=== PATIENT | female | born 1960 | race African-American/Black ===

== ENCOUNTER → 2017-03-14 | Outpatient (CLI) | payer MEDICARE, MEDICAID ==
[~2017-03-14] MED LIST: CARV3.1242 PO; ESOM40CA PO; HYDR100T26 PO; INSU3INS6 SUBCUT; ISOS30TA6 PO; NITR100C PO; PHEN-910 PO
== END | disposition home or self-care (01) ==
LOC: RAD 11:24
PROVIDERS: ATTEND Physician Assistant Medical
DX: M19.071 Primary osteoarthritis, right ankle and foot (principal)
CPT/HCPCS: 73630

== ENCOUNTER 2017-03-20 14:13 | Emergency (ER) | payer MEDICARE, MEDICAID ==
[~2017-03-20] VITALS: Ht 165.1 cm; Wt 85.0 kg
[2017-03-20 15:48] VITALS: BP 135/85
[2017-03-20] MEDS ORDERED: ONDANSETRON HCL 4MG/2ML VIAL IV STA (16:27)
[2017-03-20] MEDS ORDERED: FAMOTIDINE 20MG/2ML VIAL IV ONE (16:30)
[2017-03-20] MEDS ORDERED: KETOROLAC 15MG/ML VIAL IV ONE (16:30)
[2017-03-20 16:45] LABS: BASOPHILS % 1.2 % (0.0-2.0); EOSINOPHILS % 1.7 % (0.0-5.0); HEMATOCRIT. 42.6 % (36.0-48.0); HEMOGLOBIN. 13.6 g/dL (12.0-16.0); LYMPHOCYTES % 9.8 % (20.0-50.0); MEAN CORPUSCULAR HEMOGLOBIN 26.6 pg (28.0-32.0); MEAN CORPUSCULAR VOLUME 83.4 fL (81.0-99.0); MEAN PLATELET VOLUME 9.4 fl (7.4-10.4); MONOCYTES % 10.3 % (2.0-8.0); PLATELET 109 x1000/uL (130-400); RED BLOOD CELL COUNT 5.11 mill/uL (4.2-5.4); RED CELL DISTRIBUTION WIDTH 19.9 % (11.6-14.6)
[2017-03-20 16:51] LABS: CHLORIDE 101 mEq/L (98-107)
[2017-03-20 16:52] LABS: INR 0.9; PROTHROMBIN TIME 9.8 sec (9.4-11.6)
[2017-03-20 17:00] LABS: CARBON DIOXIDE 29 mEq/L (21-32)
[2017-03-20 17:05] LABS: CLARITY URINE CLOUDY (CLEAR); COLOR URINE YELLOW (YELLOW); KETONES URINE TRACE (NEGATIVE); LEUKOCYTE ESTERASE URINE TRACE (NEGATIVE); NITRITE URINE NEGATIVE (NEGATIVE); OCCULT BLOOD URINE TRACE (NEGATIVE); PH URINE 5.5 (4.5-8.0); PROTEIN URINE 4+ (NEGATIVE); SPECIFIC GRAVITY URINE 1.024 (1.005-1.030); UROBILINOGEN URINE 0.2 E.U./dL (0.2-1.0)
[2017-03-20] MEDS ORDERED: ACETAMINOPHEN 325MG TABLET PO ONE (17:15)
[2017-03-20] MEDS ORDERED: FAMOTIDINE 20MG TABLET PO ONE (17:15)
== END 2017-03-20 17:36 | disposition left against medical advice (07) ==
LOC: ER 15:10
DX: R05 Cough (principal); R11.10 Vomiting, unspecified; I13.2 Hypertensive heart and chronic kidney disease with heart failure and with stage 5 chronic kidney disease, or end stage renal disease; I50.9 Heart failure, unspecified; N18.6 End stage renal disease; E11.22 Type 2 diabetes mellitus with diabetic chronic kidney disease; Z99.2 Dependence on renal dialysis; Z79.4 Long term (current) use of insulin; Z88.5 Allergy status to narcotic agent
CPT/HCPCS: 36415; 80053; 81001; 83690; 85025; 85610; 99284; J1885; J2405; J3490

== ENCOUNTER 2017-03-24 13:13 | Emergency (ER) | payer MEDICARE, MEDICAID ==
[~2017-03-24] VITALS: Ht 165.1 cm; Wt 86.0 kg
[2017-03-24] MEDS ORDERED: SODIUM CHLORIDE 0.9% 500 ML IV ONE (14:19)
[2017-03-24] MEDS ORDERED: METOCLOPRAMIDE HCL 10MG/2ML VIAL IV STA (14:19)
[2017-03-24] MEDS ORDERED: DIPHENHYDRAMINE 50MG/ML VIAL IV ONE (14:30)
[2017-03-24 14:47] LABS: EOSINOPHILS % 0.8 % (0.0-5.0); LYMPHOCYTES % 7.9 % (20.0-50.0); MEAN CORPUSCULAR VOLUME 81.9 fL (81.0-99.0); MEAN PLATELET VOLUME 9.4 fl (7.4-10.4); NEUTROPHILS % 82.3 % (40.0-76.0); PLATELET 114 x1000/uL (130-400); RED CELL DISTRIBUTION WIDTH 19.5 % (11.6-14.6)
[2017-03-24 14:55] LABS: PROTHROMBIN TIME 10.2 sec (9.4-11.6)
[2017-03-24 15:02] LABS: CARBON DIOXIDE 31 mEq/L (21-32); CHLORIDE 98 mEq/L (98-107)
[2017-03-24] MEDS ORDERED: ONDANSETRON 4MG ODT PO ONE (15:15)
[2017-03-24 16:50] VITALS: BP 141/77
== END 2017-03-24 16:52 | disposition home or self-care (01) ==
LOC: ER 13:22 → CANBEDREQ 19:20
DX: R10.84 Generalized abdominal pain (principal); R11.2 Nausea with vomiting, unspecified; J02.9 Acute pharyngitis, unspecified; E11.22 Type 2 diabetes mellitus with diabetic chronic kidney disease; N18.6 End stage renal disease; I50.9 Heart failure, unspecified; Z99.2 Dependence on renal dialysis; Z88.5 Allergy status to narcotic agent; Z79.4 Long term (current) use of insulin
CPT/HCPCS: 36415; 80053; 83690; 85025; 85610; 93005; 99285; Q0162; J1200; J2765; J7030

== ENCOUNTER 2018-02-05 08:10 | Emergency (ER) | payer MEDICARE, MEDICAID ==
[~2018-02-05] VITALS: Ht 165.1 cm; Wt 81.0 kg
[2018-02-05] MEDS ORDERED: ONDANSETRON HCL 4MG/2ML INJ IV STA (10:27)
[2018-02-05] MEDS ORDERED: MORPHINE SULFATE 4 MG/ML CPJ (NOT FOR IM USE) IV STA (10:27)
[2018-02-05] MEDS ORDERED: CLONIDINE 0.2MG TABLET PO ONE (10:30)
[2018-02-05 10:47] LABS: CLARITY URINE CLOUDY (CLEAR); COLOR URINE YELLOW (YELLOW); KETONES URINE NEGATIVE (NEGATIVE); LEUKOCYTE ESTERASE URINE 2+ (NEGATIVE); NITRITE URINE NEGATIVE (NEGATIVE); OCCULT BLOOD URINE TRACE (NEGATIVE); PROTEIN URINE 4+ (NEGATIVE); SPECIFIC GRAVITY URINE 1.016 (1.005-1.030); UROBILINOGEN URINE 0.2 E.U./dL (0.2-1.0)
[2018-02-05 10:54] LABS: BASOPHILS % 0.3 % (0.0-2.0); HEMATOCRIT. 33.8 % (36.0-48.0); HEMOGLOBIN. 10.8 g/dL (12.0-16.0); LYMPHOCYTES % 12.6 % (20.0-50.0); MEAN CORPUSCULAR HEMOGLOBIN 26.8 pg (28.0-32.0); MEAN CORPUSCULAR VOLUME 83.8 fL (81.0-99.0); MEAN PLATELET VOLUME 7.8 fl (7.4-10.4); MONOCYTES % 7.7 % (2.0-8.0); NEUTROPHILS % 75.4 % (40.0-76.0); PLATELET 196 x1000/uL (130-400); RED BLOOD CELL COUNT 4.03 mill/uL (4.2-5.4); RED CELL DISTRIBUTION WIDTH 22.9 % (11.6-14.6)
[2018-02-05 11:04] LABS: PARTIAL THROMBOPLASTIN TIME 26.7 sec (23.4-31.0); PROTHROMBIN TIME 9.8 sec (9.1-11.1)
[2018-02-05 11:20] LABS: CHLORIDE 102 mEq/L (98-107)
[2018-02-05] MEDS ORDERED: HYDROCODONE/ACETAMINOPHEN 5/325MG TABLET PO ONE (11:30)
[2018-02-05 11:55] LABS: PLATELET ESTIMATE NORMAL
[2018-02-05 13:30] VITALS: BP 177/89
== END 2018-02-05 13:30 | disposition home or self-care (01) ==
LOC: ER 10:03
DX: M54.5 Low back pain (principal); K59.00 Constipation, unspecified; E11.649 Type 2 diabetes mellitus with hypoglycemia without coma; I13.2 Hypertensive heart and chronic kidney disease with heart failure and with stage 5 chronic kidney disease, or end stage renal disease; N18.6 End stage renal disease; I50.9 Heart failure, unspecified; N39.0 Urinary tract infection, site not specified; E11.22 Type 2 diabetes mellitus with diabetic chronic kidney disease; Z99.2 Dependence on renal dialysis; Z79.4 Long term (current) use of insulin; Z79.899 Other long term (current) drug therapy
CPT/HCPCS: 36415; 71045; 72070; 81025; 82962; 93005; 99285

== ENCOUNTER 2018-04-05 14:16 | Inpatient (IN) | payer MEDICARE, MEDICAID ==
[~2018-04-05] VITALS: Ht 165.1 cm; Wt 84.9 kg
[2018-04-05] MEDS ORDERED: FAMOTIDINE 20MG/2ML VIAL IV STA (15:09)
[2018-04-05] MEDS ORDERED: ONDANSETRON HCL 4MG/2ML INJ IV STA (15:09)
[2018-04-05] MEDS ORDERED: MORPHINE SULFATE 10 MG/ML CPJ IV ONE ×2 (15:15→18:15)
[2018-04-05] MEDS ORDERED: SODIUM CHLORIDE 0.9% 500 ML IV ONE (15:55)
[2018-04-05] MEDS ORDERED: PIPERACILLIN/TAZ 3.375G PREMIX 50 ML IV ONE (16:30)
[2018-04-05] MEDS ORDERED: ONDANSETRON HCL 4MG/2ML INJ IV ONE (16:30)
[2018-04-05] MEDS ORDERED: VANCOMYCIN 1 G PREMIX 200 ML IV ONE (16:30)
[2018-04-05] MEDS ORDERED: HYDRALAZINE 20MG/ML VIAL IV ONE (16:30)
[2018-04-05 17:11] LABS: HEMATOCRIT. 41.5 % (36.0-48.0); HEMOGLOBIN. 13.1 g/dL (12.0-16.0); MEAN CORPUSCULAR HEMOGLOBIN 26.9 pg (28.0-32.0); MEAN PLATELET VOLUME 9.5 fl (7.4-10.4); PLATELET 131 x1000/uL (130-400); RED BLOOD CELL COUNT 4.88 mill/uL (4.2-5.4); RED CELL DISTRIBUTION WIDTH 20.5 % (11.6-14.6)
[2018-04-05 17:16] LABS: CHLORIDE 100 mEq/L (98-107)
[2018-04-05 17:17] LABS: INR 1.1; PROTHROMBIN TIME 11.1 sec (9.1-11.1)
[2018-04-05 17:20] LABS: ETHANOL BLOOD < 10 mg/dL
[2018-04-05 17:30] LABS: PLATELET ESTIMATE NORMAL
[2018-04-05] MEDS ORDERED: METRONIDAZOLE 500 MG PREMIX 100 ML IV ONE (17:45)
[2018-04-05] MEDS ORDERED: METOCLOPRAMIDE HCL 10MG/2ML VIAL IV ONE (18:15)
[2018-04-05] MEDS ORDERED: IPRATROPIUM/ALBUTEROL 0.5-3(2.5)MG/3ML NEB INH PRN (19:15)
[2018-04-05] MEDS ORDERED: CLONIDINE 0.1MG TABLET PO PRN (19:15)
[2018-04-05] MEDS ORDERED: DIPHENHYDRAMINE 50MG/ML VIAL IV PRN (19:15)
[2018-04-05] MEDS ORDERED: MAGNESIUM/ALUMINUM HYDROXIDE/SIMETHICONE 30ML UDC PO PRN (19:15)
[2018-04-05] MEDS ORDERED: NA PHOS,M-B/NA PHOS,DI-BA ENEMA 118ML PR PRN (19:15)
[2018-04-05] MEDS ORDERED: GUAIFENESIN 200MG/10ML SUGAR FREE UDC PO PRN (19:15)
[2018-04-05] MEDS ORDERED: DOCUSATE SODIUM 100MG CAPSULE PO PRN (19:15)
[2018-04-05] MEDS ORDERED: MORPHINE SULFATE 10MG/5ML ORAL SOLN UDC PO PRN (19:15)
[2018-04-05] MEDS ORDERED: LORAZEPAM 2MG/ML CPJ IV PRN (19:15)
[2018-04-05] MEDS ORDERED: ACETAMINOPHEN 325MG TABLET PO PRN (19:15)
[2018-04-05] MEDS ORDERED: METRONIDAZOLE 500 MG PREMIX 100 ML IV SCH (22:00)
[2018-04-05 23:51] VITALS: BP 152/87
[2018-04-06] VITALS: BP 155/85
[2018-04-06] MEDS ORDERED: LEVOFLOXACIN 500MG PREMIX 100 ML IV NR (01:00)
[2018-04-06] MEDS ORDERED: NIFE20CA PO (03:20)
[2018-04-06] MEDS ORDERED: DEXTROSE 50% WATER 50ML SYRINGE IV PRN (03:45)
[2018-04-06] MEDS: BLOOD SUGAR DIAGNOSTIC STRIP TEST SCH ×4 (05:48→21:02)
[2018-04-06 06:00] VITALS: BP 150/81
[2018-04-06] MEDS ORDERED: METRONIDAZOLE 500 MG PREMIX 100 ML IV SCH (06:00)
[2018-04-06 06:54] LABS: HEMATOCRIT. 36.4 % (36.0-48.0); HEMOGLOBIN. 11.7 g/dL (12.0-16.0); MEAN CORPUSCULAR HEMOGLOBIN 27.3 pg (28.0-32.0); MEAN CORPUSCULAR VOLUME 85.4 fL (81.0-99.0); MEAN PLATELET VOLUME 9.5 fl (7.4-10.4); PLATELET 120 x1000/uL (130-400); RED BLOOD CELL COUNT 4.26 mill/uL (4.2-5.4); RED CELL DISTRIBUTION WIDTH 20.5 % (11.6-14.6)
[2018-04-06 07:12] LABS: CHLORIDE 97 mEq/L (98-107)
[2018-04-06 07:28] LABS: LDL CHOLESTEROL 55 mg/dL (5-100)
[2018-04-06 07:29] LABS: HDL CHOLESTEROL 77 mg/dL (40-59)
[2018-04-06 08:00] VITALS: BP 145/84
[2018-04-06] MEDS: ENOXAPARIN 30MG/0.3ML SYR SUBCUT SCH (09:05)
[2018-04-06] MEDS: INSULIN LISPRO 100 UNITS/ML SUBCUT SCH ×4 (09:06→21:00)
[2018-04-06] MEDS: ONDANSETRON HCL 4MG/2ML INJ IV PRN (11:57)
[2018-04-06 12:00] VITALS: BP 147/85
[2018-04-06] MEDS ORDERED: FLUCONAZOLE 150MG TABLET PO NR (12:30)
[2018-04-06] MEDS: NYSTATIN POWDER 15GM TOP SCH ×2 (13:00→16:25)
[2018-04-06] MEDS ORDERED: METOCLOPRAMIDE HCL 10MG/2ML VIAL IV PRN (13:30)
[2018-04-06 14:14] LABS: PLATELET ESTIMATE SLIGHTLY DECREASED
[2018-04-06 16:00] VITALS: BP 148/94
[2018-04-06] MEDS: METRONIDAZOLE 500 MG PREMIX 100 ML IV SCH (16:24)
[2018-04-06 20:00] VITALS: BP_SYST 159; BP_SYST 195; BP_DIAS 100; BP_DIAS 110
[2018-04-07] VITALS: BP 175/100
[2018-04-07] MEDS ORDERED: AMLODIPINE 10MG TABLET PO NR (00:15)
[2018-04-07] MEDS: METRONIDAZOLE 500 MG PREMIX 100 ML IV SCH ×4 (00:35→17:00)
[2018-04-07 04:00] VITALS: BP 138/83
[2018-04-07] MEDS: BLOOD SUGAR DIAGNOSTIC STRIP TEST SCH ×4 (05:46→12:40)
[2018-04-07 07:51] LABS: BASOPHILS % 1.1 % (0.0-2.0); EOSINOPHILS % 0.1 % (0.0-5.0); HEMATOCRIT. 36.1 % (36.0-48.0); HEMOGLOBIN. 11.7 g/dL (12.0-16.0); LYMPHOCYTES % 7.6 % (20.0-50.0); MEAN CORPUSCULAR HEMOGLOBIN 27.4 pg (28.0-32.0); MEAN CORPUSCULAR VOLUME 84.5 fL (81.0-99.0); MEAN PLATELET VOLUME 9.6 fl (7.4-10.4); MONOCYTES % 11.8 % (2.0-8.0); NEUTROPHILS % 79.4 % (40.0-76.0); PLATELET 115 x1000/uL (130-400); RED BLOOD CELL COUNT 4.27 mill/uL (4.2-5.4); RED CELL DISTRIBUTION WIDTH 20.1 % (11.6-14.6)
[2018-04-07 08:00] VITALS: BP 134/81
[2018-04-07] MEDS: INSULIN LISPRO 100 UNITS/ML SUBCUT SCH ×4 (08:10→22:19)
[2018-04-07] MEDS: METOPROLOL TARTRATE 50MG TABLET PO SCH ×3 (08:54→20:22)
[2018-04-07] MEDS: AMLODIPINE 10MG TABLET PO SCH (08:55)
[2018-04-07] MEDS: ENOXAPARIN 30MG/0.3ML SYR SUBCUT SCH (08:57)
[2018-04-07] MEDS: NYSTATIN POWDER 15GM TOP SCH ×2 (09:00→13:00)
[2018-04-07 12:00] VITALS: BP 117/71
[2018-04-07 16:00] VITALS: BP 162/106
[2018-04-07] MEDS: CLONIDINE 0.2MG TABLET PO PRN (16:17)
[2018-04-07] MEDS: METRONIDAZOLE 500MG TABLET PO SCH ×2 (16:29→22:14)
[2018-04-07 20:00] VITALS: BP 140/71
[2018-04-07] MEDS ORDERED: LEVOFLOXACIN 250MG TABLET PO SCH (21:00)
[2018-04-07] MEDS ORDERED: LEVOFLOXACIN 250MG PREMIX 50 ML IV SCH (21:00)
[2018-04-08] VITALS: BP 135/66
[2018-04-08 04:00] VITALS: BP 91/48
[2018-04-08 06:45] LABS: BASOPHILS % 1.1 % (0.0-2.0); EOSINOPHILS % 0.6 % (0.0-5.0); HEMATOCRIT. 38.9 % (36.0-48.0); HEMOGLOBIN. 12.6 g/dL (12.0-16.0); LYMPHOCYTES % 8.4 % (20.0-50.0); MEAN CORPUSCULAR HEMOGLOBIN 27.5 pg (28.0-32.0); MEAN CORPUSCULAR VOLUME 84.9 fL (81.0-99.0); MEAN PLATELET VOLUME 10.2 fl (7.4-10.4); MONOCYTES % 12.8 % (2.0-8.0); NEUTROPHILS % 77.1 % (40.0-76.0); PLATELET 108 x1000/uL (130-400); RED BLOOD CELL COUNT 4.58 mill/uL (4.2-5.4); RED CELL DISTRIBUTION WIDTH 20.2 % (11.6-14.6)
[2018-04-08] MEDS: BLOOD SUGAR DIAGNOSTIC STRIP TEST SCH ×4 (07:40→21:25)
[2018-04-08 08:00] VITALS: BP 159/86
[2018-04-08] MEDS: INSULIN LISPRO 100 UNITS/ML SUBCUT SCH ×4 (08:10→21:24)
[2018-04-08] MEDS: METOPROLOL TARTRATE 50MG TABLET PO SCH ×2 (09:14→21:25)
[2018-04-08] MEDS: METRONIDAZOLE 500MG TABLET PO SCH ×2 (09:14→21:24)
[2018-04-08] MEDS: AMLODIPINE 10MG TABLET PO SCH (09:15)
[2018-04-08] MEDS: NYSTATIN POWDER 15GM TOP SCH ×3 (09:15→17:00)
[2018-04-08] MEDS: ENOXAPARIN 30MG/0.3ML SYR SUBCUT SCH (09:15)
[2018-04-08] MEDS ORDERED: SODIUM POLYSTYRENE SULFONATE 15 G/60 ML BOT PO SCH (11:30)
[2018-04-08 12:00] VITALS: BP 106/62
[2018-04-08 16:00] VITALS: BP 143/74
[2018-04-08] MEDS: METOCLOPRAMIDE HCL 10MG/2ML VIAL IV SCH ×2 (18:02→21:24)
[2018-04-08 20:00] VITALS: BP 157/90
[2018-04-09] VITALS: BP 118/73
[2018-04-09] MEDS: ONDANSETRON HCL 4MG/2ML INJ IV PRN (00:40)
[2018-04-09 04:00] VITALS: BP 120/70
[2018-04-09] MEDS: BLOOD SUGAR DIAGNOSTIC STRIP TEST SCH (06:19)
[2018-04-09 06:39] LABS: HEMATOCRIT. 40.1 % (36.0-48.0); HEMOGLOBIN. 12.9 g/dL (12.0-16.0); MEAN CORPUSCULAR HEMOGLOBIN 27.2 pg (28.0-32.0); MEAN CORPUSCULAR VOLUME 84.3 fL (81.0-99.0); MEAN PLATELET VOLUME 10.2 fl (7.4-10.4); PLATELET 94 x1000/uL (130-400); RED BLOOD CELL COUNT 4.76 mill/uL (4.2-5.4); RED CELL DISTRIBUTION WIDTH 20.3 % (11.6-14.6)
[2018-04-09] MEDS: AMLODIPINE 10MG TABLET PO SCH (09:17)
[2018-04-09] MEDS: CLONIDINE 0.2MG TABLET PO PRN (09:18)
[2018-04-09] MEDS: METOPROLOL TARTRATE 50MG TABLET PO SCH (09:18)
[2018-04-10 14:16] LABS: NUCLEATED RED BLOOD CELLS 1 /100 WBC; PLATELET ESTIMATE SLIGHTLY DECREASED
== END 2018-04-09 10:18 | disposition home or self-care (01) | DRG 177 ==
LOC: ER 14:43 → 7WST 18:10 → EDBEDREQ 18:12 → ENRESERV 20:41
PROVIDERS: ADMIT Internal Medicine; ATTEND Internal Medicine
PROC: 5A1D70Z Performance of Urinary Filtration, Intermittent, Less than 6 Hours Per Day (ICD-10-PCS; principal; 2018-04-06)
PROC: 5A1D70Z Performance of Urinary Filtration, Intermittent, Less than 6 Hours Per Day (ICD-10-PCS; 2018-04-08)
DX: J69.0 Pneumonitis due to inhalation of food and vomit (principal); N18.6 End stage renal disease; E46 Unspecified protein-calorie malnutrition; R65.10 Systemic inflammatory response syndrome (SIRS) of non-infectious origin without acute organ dysfunction; I13.2 Hypertensive heart and chronic kidney disease with heart failure and with stage 5 chronic kidney disease, or end stage renal disease; K52.9 Noninfective gastroenteritis and colitis, unspecified; E11.22 Type 2 diabetes mellitus with diabetic chronic kidney disease; E87.5 Hyperkalemia; H54.8 Legal blindness, as defined in USA; I25.10 Atherosclerotic heart disease of native coronary artery without angina pectoris; R74.8 Abnormal levels of other serum enzymes; I50.9 Heart failure, unspecified; K21.9 Gastro-esophageal reflux disease without esophagitis; D64.9 Anemia, unspecified; N76.0 Acute vaginitis; Z99.2 Dependence on renal dialysis; Z68.31 Body mass index [BMI] 31.0-31.9, adult; Z88.6 Allergy status to analgesic agent; Z79.4 Long term (current) use of insulin; Z79.899 Other long term (current) drug therapy
CPT/HCPCS: 36415; 71045; 74176; 80048; 80051; 80061; 82947; 82962; 83605; 83880; 84132; 84484; 93005; 96361; 96365; 96375; 96376; 99285; C1893; G0482; J0360; J1650; J1815; J1956; J2270; J2405; J2543; J2765; J3370; J3490; J7040; J7050

== ENCOUNTER 2018-04-25 16:56 | Inpatient (IN) | payer MEDICARE, MEDICAID ==
[~2018-04-25] VITALS: Ht 165.1 cm; Wt 79.4 kg
[~2018-04-25 16:56] MED LIST changes: +NIFE20CA PO
[2018-04-26] MEDS ORDERED: FUROSEMIDE 40MG/4ML VIAL IV ONE (00:30)
[2018-04-26 01:12] LABS: BASOPHILS % 1.5 % (0.0-2.0); EOSINOPHILS % 4.2 % (0.0-5.0); HEMATOCRIT. 38.2 % (36.0-48.0); HEMOGLOBIN. 12.1 g/dL (12.0-16.0); LYMPHOCYTES % 17.2 % (20.0-50.0); MEAN CORPUSCULAR HEMOGLOBIN 27.1 pg (28.0-32.0); MEAN CORPUSCULAR VOLUME 85.8 fL (81.0-99.0); MEAN PLATELET VOLUME 8.4 fl (7.4-10.4); MONOCYTES % 11.5 % (2.0-8.0); NEUTROPHILS % 65.6 % (40.0-76.0); PLATELET 190 x1000/uL (130-400); RED BLOOD CELL COUNT 4.45 mill/uL (4.2-5.4); RED CELL DISTRIBUTION WIDTH 20.1 % (11.6-14.6)
[2018-04-26 01:18] LABS: CHLORIDE 99 mEq/L (98-107)
[2018-04-26 01:22] LABS: PARTIAL THROMBOPLASTIN TIME 26.9 sec (23.4-31.0)
[2018-04-26] MEDS ORDERED: DIPHENHYDRAMINE 25MG CAPSULE PO ONE (06:00)
[2018-04-26] MEDS ORDERED: NA PHOS,M-B/NA PHOS,DI-BA ENEMA 118ML PR PRN (07:00)
[2018-04-26] MEDS ORDERED: GUAIFENESIN 200MG/10ML SUGAR FREE UDC PO PRN (07:00)
[2018-04-26] MEDS ORDERED: CLONIDINE 0.1MG TABLET PO PRN (07:00)
[2018-04-26] MEDS ORDERED: ONDANSETRON HCL 4MG/2ML INJ IV PRN (07:00)
[2018-04-26] MEDS ORDERED: ACETAMINOPHEN 325MG TABLET PO PRN (07:00)
[2018-04-26] MEDS ORDERED: DOCUSATE SODIUM 100MG CAPSULE PO PRN (07:00)
[2018-04-26] MEDS ORDERED: IPRATROPIUM/ALBUTEROL 0.5-3(2.5)MG/3ML NEB INH PRN (07:00)
[2018-04-26] MEDS ORDERED: ENOXAPARIN 40MG/0.4ML SYR SUBCUT SCH (07:00)
[2018-04-26] MEDS ORDERED: MAGNESIUM/ALUMINUM HYDROXIDE/SIMETHICONE 30ML UDC PO PRN (07:00)
[2018-04-26] MEDS ORDERED: HYDRALAZINE HCL 50MG TABLET PO SCH (09:00)
[2018-04-26 09:05] VITALS: BP 174/97
[2018-04-26 09:30] VITALS: BP 174/97
[2018-04-26] MEDS: ENOXAPARIN 30MG/0.3ML SYR SUBCUT SCH (09:40)
[2018-04-26] MEDS: DIPHENHYDRAMINE 50MG/ML VIAL IV PRN ×2 (09:42→21:09)
[2018-04-26] MEDS: MORPHINE SULFATE 4 MG/ML CPJ (NOT FOR IM USE) IV PRN (09:42)
[2018-04-26 17:28] VITALS: BP 138/81
[2018-04-26 20:00] VITALS: BP 159/84
[2018-04-27] VITALS: BP 135/80
[2018-04-27 04:00] VITALS: BP 135/62
[2018-04-27] MEDS: DIPHENHYDRAMINE 50MG/ML VIAL IV PRN ×4 (05:03→21:33)
[2018-04-27 07:24] LABS: CHLORIDE 99 mEq/L (98-107)
[2018-04-27 07:38] LABS: LDL CHOLESTEROL 64 mg/dL (5-100)
[2018-04-27 07:40] LABS: HDL CHOLESTEROL 81 mg/dL (40-59)
[2018-04-27 08:00] VITALS: BP 157/89
[2018-04-27 08:54] LABS: BASOPHILS % 2.5 % (0.0-2.0); HEMATOCRIT. 34.3 % (36.0-48.0); HEMOGLOBIN. 10.9 g/dL (12.0-16.0); LYMPHOCYTES % 20.2 % (20.0-50.0); MEAN CORPUSCULAR VOLUME 85.3 fL (81.0-99.0); MEAN PLATELET VOLUME 9.4 fl (7.4-10.4); MONOCYTES % 10.2 % (2.0-8.0); NEUTROPHILS % 61.1 % (40.0-76.0); PLATELET 194 x1000/uL (130-400); RED BLOOD CELL COUNT 4.02 mill/uL (4.2-5.4); RED CELL DISTRIBUTION WIDTH 19.9 % (11.6-14.6)
[2018-04-27] MEDS: ENOXAPARIN 30MG/0.3ML SYR SUBCUT SCH (09:16)
[2018-04-27 12:00] VITALS: BP 151/83
[2018-04-27 16:00] VITALS: BP 144/71
[2018-04-27] MEDS: MORPHINE SULFATE 4 MG/ML CPJ (NOT FOR IM USE) IV PRN (17:31)
[2018-04-27] MEDS: LORAZEPAM 2MG/ML CPJ IV PRN (18:19)
[2018-04-27 20:00] VITALS: BP 150/81
[2018-04-28] VITALS: BP 128/79
[2018-04-28] MEDS ORDERED: DEXTROSE 50% WATER 50ML SYRINGE IV PRN (03:45)
[2018-04-28 04:00] VITALS: BP 160/94
[2018-04-28] MEDS: DIPHENHYDRAMINE 50MG/ML VIAL IV PRN ×3 (05:50→22:42)
[2018-04-28] MEDS: BLOOD SUGAR DIAGNOSTIC STRIP TEST SCH ×4 (07:40→20:16)
[2018-04-28 08:00] VITALS: BP 119/86
[2018-04-28] MEDS: INSULIN LISPRO 100 UNITS/ML SUBCUT SCH ×4 (08:10→20:16)
[2018-04-28] MEDS: ENOXAPARIN 30MG/0.3ML SYR SUBCUT SCH (09:01)
[2018-04-28] MEDS: LORAZEPAM 2MG/ML CPJ IV PRN (09:36)
[2018-04-28] MEDS ORDERED: IOHEXOL-350 100 ML BOTTLE ONE (12:45)
[2018-04-28] MEDS: SEVELAMER CARBONATE 800 MG TABLET PO SCH ×2 (14:44→18:23)
[2018-04-28 17:08] VITALS: BP 147/86
[2018-04-28 20:00] VITALS: BP 136/64
[2018-04-28] MEDS: MORPHINE SULFATE 4 MG/ML CPJ (NOT FOR IM USE) IV PRN (20:31)
[2018-04-28 23:55] VITALS: BP 136/64
[2018-04-29] MEDS: LORAZEPAM 2MG/ML CPJ IV PRN (03:38)
[2018-04-29 04:00] VITALS: BP 155/76
[2018-04-29] MEDS: BLOOD SUGAR DIAGNOSTIC STRIP TEST SCH (06:42)
[2018-04-29] MEDS: SEVELAMER CARBONATE 800 MG TABLET PO SCH (08:16)
[2018-04-29] MEDS: ENOXAPARIN 30MG/0.3ML SYR SUBCUT SCH (09:00)
[2018-04-29] MEDS: DIPHENHYDRAMINE 50MG/ML VIAL IV PRN (09:18)
[2018-04-29] MEDS: INSULIN LISPRO 100 UNITS/ML SUBCUT SCH (09:19)
== END 2018-04-29 10:49 | disposition home or self-care (01) | DRG 291 ==
LOC: ER 16:56 → 7WST 04-26 04:02 → EDBEDREQTM 04-26 04:05 → EDBEDREQ 04-26 04:05 → ENRESERV 04-26 07:58 → 7WST 04-26 08:57
PROVIDERS: ADMIT Internal Medicine; ATTEND Internal Medicine
PROC: 5A1D70Z Performance of Urinary Filtration, Intermittent, Less than 6 Hours Per Day (ICD-10-PCS; 2018-04-26)
PROC: 5A1D70Z Performance of Urinary Filtration, Intermittent, Less than 6 Hours Per Day (ICD-10-PCS; 2018-04-27)
PROC: 02HV33Z Insertion of Infusion Device into Superior Vena Cava, Percutaneous Approach (ICD-10-PCS; principal; 2018-04-28)
PROC: B5181ZA Fluoroscopy of Superior Vena Cava using Low Osmolar Contrast, Guidance (ICD-10-PCS; 2018-04-28)
PROC: B548ZZA Ultrasonography of Superior Vena Cava, Guidance (ICD-10-PCS; 2018-04-28)
PROC: 5A1D70Z Performance of Urinary Filtration, Intermittent, Less than 6 Hours Per Day (ICD-10-PCS; 2018-04-28)
DX: I13.2 Hypertensive heart and chronic kidney disease with heart failure and with stage 5 chronic kidney disease, or end stage renal disease (principal); J96.00 Acute respiratory failure, unspecified whether with hypoxia or hypercapnia; N18.6 End stage renal disease; I50.43 Acute on chronic combined systolic (congestive) and diastolic (congestive) heart failure; E46 Unspecified protein-calorie malnutrition; E11.22 Type 2 diabetes mellitus with diabetic chronic kidney disease; H54.7 Unspecified visual loss; I25.10 Atherosclerotic heart disease of native coronary artery without angina pectoris; K21.9 Gastro-esophageal reflux disease without esophagitis; Z99.2 Dependence on renal dialysis; Z88.5 Allergy status to narcotic agent; Z79.899 Other long term (current) drug therapy; Z79.84 Long term (current) use of oral hypoglycemic drugs; Z68.29 Body mass index [BMI] 29.0-29.9, adult
CPT/HCPCS: 36415; 36569; 71045; 71275; 76937; 77001; 78582; 80048; 80061; 82962; 83880; 84484; 93005; 93970; 96374; 99285; A9558; C1725; J1200; J1650; J1815; J1940; J2060; J2270; Q0163; Q9967

== ENCOUNTER 2018-06-19 20:08 | Inpatient (IN) | payer MEDICARE, MEDICAID ==
[~2018-06-19] VITALS: Ht 167.6 cm; Wt 93.9 kg
[2018-06-20] MEDS ORDERED: ASPIRIN 325MG EC TABLET PO ONE (04:00)
[2018-06-20 04:46] LABS: BASOPHILS % 1.6 % (0.0-2.0); EOSINOPHILS % 5.2 % (0.0-5.0); HEMATOCRIT. 37.1 % (36.0-48.0); HEMOGLOBIN. 11.9 g/dL (12.0-16.0); LYMPHOCYTES % 19.9 % (20.0-50.0); MEAN CORPUSCULAR HEMOGLOBIN 28.1 pg (28.0-32.0); MEAN CORPUSCULAR VOLUME 87.6 fL (81.0-99.0); MEAN PLATELET VOLUME 9.1 fl (7.4-10.4); MONOCYTES % 11.1 % (2.0-8.0); NEUTROPHILS % 62.2 % (40.0-76.0); PLATELET 118 x1000/uL (130-400); RED BLOOD CELL COUNT 4.24 mill/uL (4.2-5.4); RED CELL DISTRIBUTION WIDTH 20.7 % (11.6-14.6)
[2018-06-20 04:52] LABS: CHLORIDE 103 mEq/L (98-107)
[2018-06-20] MEDS ORDERED: FENTANYL CITRATE/PF 50MCG/ML 2ML VIAL IV ONE (06:45)
[2018-06-20] MEDS ORDERED: DIPHENHYDRAMINE 50MG CAPSULE PO ONE (06:45)
[2018-06-20] MEDS ORDERED: ONDANSETRON HCL 4MG/2ML INJ IV PRN (08:45)
[2018-06-20] MEDS ORDERED: GUAIFENESIN 200MG/10ML SUGAR FREE UDC PO PRN (08:45)
[2018-06-20] MEDS ORDERED: HYDRALAZINE 20MG/ML VIAL IV PRN (08:45)
[2018-06-20] MEDS ORDERED: ENOXAPARIN 40MG/0.4ML SYR SUBCUT SCH (08:45)
[2018-06-20] MEDS ORDERED: MAGNESIUM/ALUMINUM HYDROXIDE/SIMETHICONE 30ML UDC PO PRN (08:45)
[2018-06-20] MEDS ORDERED: DOCUSATE SODIUM 100MG CAPSULE PO PRN (08:45)
[2018-06-20] MEDS ORDERED: IPRATROPIUM/ALBUTEROL 0.5-3(2.5)MG/3ML NEB INH PRN (08:45)
[2018-06-20] MEDS ORDERED: DEXTROSE 50% WATER 50ML SYRINGE IV PRN (08:45)
[2018-06-20] MEDS ORDERED: IPRATROPIUM/ALBUTEROL 0.5-3(2.5)MG/3ML NEB ONE (09:25)
[2018-06-20] MEDS: CLONIDINE 0.1MG TABLET PO PRN (10:22)
[2018-06-20] MEDS: TRAMADOL 50MG TABLET PO PRN (11:40)
[2018-06-20 11:50] VITALS: BP 158/88
[2018-06-20] MEDS: BLOOD SUGAR DIAGNOSTIC STRIP TEST SCH ×3 (12:53→21:04)
[2018-06-20] MEDS: INSULIN LISPRO 100 UNITS/ML SUBCUT SCH ×3 (13:00→21:20)
[2018-06-20] MEDS: ASPIRIN 81MG EC TABLET PO SCH (13:03)
[2018-06-20] MEDS: ENOXAPARIN 30MG/0.3ML SYR SUBCUT SCH (13:03)
[2018-06-20] MEDS: SODIUM CHLORIDE 0.9% INJ 3ML FLUSH IVF SCH ×2 (14:00→21:50)
[2018-06-20 15:18] LABS: CREATINE KINASE MB FRACTION 2.5 ng/mL (0.5-3.6)
[2018-06-20 16:00] VITALS: BP 152/87
[2018-06-20] MEDS: DIPHENHYDRAMINE 50MG/ML VIAL IV PRN (18:29)
[2018-06-20] MEDS: MORPHINE SULFATE 4 MG/ML CPJ (NOT FOR IM USE) IV PRN (18:30)
[2018-06-20 20:00] VITALS: BP 149/86
[2018-06-20] MEDS: LORAZEPAM 2MG/ML CPJ IV PRN (21:21)
[2018-06-21] VITALS: BP 148/84
[2018-06-21] MEDS: DIPHENHYDRAMINE 50MG/ML VIAL IV PRN ×3 (00:26→17:52)
[2018-06-21] MEDS: MORPHINE SULFATE 4 MG/ML CPJ (NOT FOR IM USE) IV PRN ×2 (00:28→21:01)
[2018-06-21 01:13] LABS: CREATINE KINASE MB FRACTION 2.5 ng/mL (0.5-3.6)
[2018-06-21 04:00] VITALS: BP 157/95
[2018-06-21 04:48] LABS: PHENCYCLIDINE URINE SCREEN NEGATIVE (NEGATIVE)
[2018-06-21 04:49] LABS: *AMPHETAMINES SCREEN URINE NEGATIVE (NEGATIVE); *BARBITURATES SCREEN URINE NEGATIVE (NEGATIVE); *BENZODIAZEPINES SCREEN URINE NEGATIVE (NEGATIVE); *COCAINE SCREEN URINE NEGATIVE (NEGATIVE); CANNABINOID URINE SCREEN NEGATIVE (NEGATIVE); METHADONE URINE SCREEN NEGATIVE (NEGATIVE); OPIATES URINE SCREEN NEGATIVE (NEGATIVE)
[2018-06-21] MEDS: SODIUM CHLORIDE 0.9% INJ 3ML FLUSH IVF SCH ×3 (05:17→21:04)
[2018-06-21] MEDS: BLOOD SUGAR DIAGNOSTIC STRIP TEST SCH ×4 (06:27→21:00)
[2018-06-21] MEDS: INSULIN LISPRO 100 UNITS/ML SUBCUT SCH ×4 (06:28→21:00)
[2018-06-21 07:11] LABS: BASOPHILS % 2.3 % (0.0-2.0); EOSINOPHILS % 5.6 % (0.0-5.0); HEMATOCRIT. 32.7 % (36.0-48.0); HEMOGLOBIN. 10.4 g/dL (12.0-16.0); LYMPHOCYTES % 21.6 % (20.0-50.0); MEAN CORPUSCULAR VOLUME 87.6 fL (81.0-99.0); MEAN PLATELET VOLUME 9.5 fl (7.4-10.4); MONOCYTES % 11.3 % (2.0-8.0); NEUTROPHILS % 59.2 % (40.0-76.0); PLATELET 112 x1000/uL (130-400); RED BLOOD CELL COUNT 3.73 mill/uL (4.2-5.4); RED CELL DISTRIBUTION WIDTH 20.4 % (11.6-14.6)
[2018-06-21] MEDS: ASPIRIN 81MG EC TABLET PO SCH (08:52)
[2018-06-21] MEDS: ENOXAPARIN 30MG/0.3ML SYR SUBCUT SCH (08:52)
[2018-06-21] MEDS: LOSARTAN POTASSIUM 25 MG TABLET PO SCH (09:15)
[2018-06-21 09:43] LABS: CHLORIDE 101 mEq/L (98-107)
[2018-06-21 10:05] LABS: T4 FREE 1.13 ng/dL (0.76-1.46)
[2018-06-21 10:08] VITALS: BP 147/90
[2018-06-21 12:00] VITALS: BP 152/96
[2018-06-21 16:00] VITALS: BP 146/91
[2018-06-21] MEDS: CARVEDILOL 3.125 MG TABLET PO SCH (21:02)
[2018-06-21 22:30] VITALS: BP 120/84
[2018-06-22] VITALS: BP 146/87
[2018-06-22] MEDS: DIPHENHYDRAMINE 50MG/ML VIAL IV PRN ×2 (01:12→21:01)
[2018-06-22 04:00] VITALS: BP 158/89
[2018-06-22] MEDS: LORAZEPAM 2MG/ML CPJ IV PRN (04:30)
[2018-06-22] MEDS: SODIUM CHLORIDE 0.9% INJ 3ML FLUSH IVF SCH ×3 (05:55→21:27)
[2018-06-22] MEDS: BLOOD SUGAR DIAGNOSTIC STRIP TEST SCH ×4 (06:42→21:01)
[2018-06-22] MEDS: INSULIN LISPRO 100 UNITS/ML SUBCUT SCH ×4 (06:43→21:21)
[2018-06-22 08:00] VITALS: BP 142/86
[2018-06-22] MEDS: ENOXAPARIN 30MG/0.3ML SYR SUBCUT SCH (09:31)
[2018-06-22] MEDS: LOSARTAN POTASSIUM 25 MG TABLET PO SCH (09:31)
[2018-06-22] MEDS: ASPIRIN 81MG EC TABLET PO SCH (09:32)
[2018-06-22] MEDS: CARVEDILOL 3.125 MG TABLET PO SCH ×2 (09:32→21:01)
[2018-06-22] MEDS: ACETAMINOPHEN 325MG TABLET PO PRN (15:38)
[2018-06-22 16:00] VITALS: BP 138/79
[2018-06-22 20:00] VITALS: BP 163/96
[2018-06-22] MEDS: MORPHINE SULFATE 4 MG/ML CPJ (NOT FOR IM USE) IV PRN (21:00)
[2018-06-23] VITALS: BP 140/76
[2018-06-23] MEDS: LORAZEPAM 2MG/ML CPJ IV PRN ×3 (00:18→17:33)
[2018-06-23 04:00] VITALS: BP 150/82
[2018-06-23 06:26] LABS: BASOPHILS % 1.9 % (0.0-2.0); HEMATOCRIT. 35.1 % (36.0-48.0); LYMPHOCYTES % 24.5 % (20.0-50.0); MEAN CORPUSCULAR HEMOGLOBIN 27.8 pg (28.0-32.0); MEAN CORPUSCULAR VOLUME 88.6 fL (81.0-99.0); MEAN PLATELET VOLUME 10.4 fl (7.4-10.4); MONOCYTES % 13.2 % (2.0-8.0); NEUTROPHILS % 54.4 % (40.0-76.0); PLATELET 138 x1000/uL (130-400); RED BLOOD CELL COUNT 3.96 mill/uL (4.2-5.4); RED CELL DISTRIBUTION WIDTH 19.5 % (11.6-14.6)
[2018-06-23] MEDS: INSULIN LISPRO 100 UNITS/ML SUBCUT SCH ×4 (06:45→20:52)
[2018-06-23] MEDS: BLOOD SUGAR DIAGNOSTIC STRIP TEST SCH ×4 (06:45→20:46)
[2018-06-23] MEDS: SODIUM CHLORIDE 0.9% INJ 3ML FLUSH IVF SCH ×3 (06:52→22:46)
[2018-06-23 08:00] VITALS: BP 131/77
[2018-06-23] MEDS ORDERED: SODIUM POLYSTYRENE SULFONATE 15 G/60 ML BOT PO NR (08:45)
[2018-06-23] MEDS ORDERED: DEXTROSE 50% WATER 50ML SYRINGE IV NR (08:45)
[2018-06-23] MEDS ORDERED: INSULIN REGULAR (HUMULIN R) UD 100 UNITS/ML SYR IV NR (08:45)
[2018-06-23] MEDS ORDERED: ACETAMINOPHEN 650MG/20.3ML UDC PO PRN (08:45)
[2018-06-23] MEDS ORDERED: CALCIUM CHLORIDE 1,000 MG in DEXT 5% WATER 90 ML IV NR (09:00)
[2018-06-23] MEDS: CARVEDILOL 3.125 MG TABLET PO SCH ×2 (09:34→20:47)
[2018-06-23] MEDS: ASPIRIN 81MG EC TABLET PO SCH (09:34)
[2018-06-23] MEDS: LOSARTAN POTASSIUM 25 MG TABLET PO SCH (09:35)
[2018-06-23] MEDS: ENOXAPARIN 30MG/0.3ML SYR SUBCUT SCH (09:36)
[2018-06-23] MEDS: ACETAMINOPHEN 325MG TABLET PO PRN (09:37)
[2018-06-23] MEDS: DIPHENHYDRAMINE 50MG/ML VIAL IV PRN (10:29)
[2018-06-23 12:00] VITALS: BP 163/89
[2018-06-23] MEDS: MORPHINE SULFATE 4 MG/ML CPJ (NOT FOR IM USE) IV PRN (12:45)
[2018-06-23 16:00] VITALS: BP 143/78
[2018-06-23 20:00] VITALS: BP 149/79
[2018-06-24] VITALS: BP 145/74
[2018-06-24] MEDS: ACETAMINOPHEN 325MG TABLET PO PRN ×2 (01:20→18:13)
[2018-06-24] MEDS: LORAZEPAM 2MG/ML CPJ IV PRN ×3 (01:45→22:57)
[2018-06-24 04:00] VITALS: BP 130/80
[2018-06-24] MEDS: BLOOD SUGAR DIAGNOSTIC STRIP TEST SCH ×4 (05:55→21:08)
[2018-06-24] MEDS: INSULIN LISPRO 100 UNITS/ML SUBCUT SCH ×4 (06:07→21:07)
[2018-06-24] MEDS: SODIUM CHLORIDE 0.9% INJ 3ML FLUSH IVF SCH ×3 (06:11→21:08)
[2018-06-24 06:54] LABS: BASOPHILS % 1.5 % (0.0-2.0); EOSINOPHILS % 5.3 % (0.0-5.0); HEMATOCRIT. 33.5 % (36.0-48.0); HEMOGLOBIN. 10.5 g/dL (12.0-16.0); LYMPHOCYTES % 18.2 % (20.0-50.0); MEAN CORPUSCULAR HEMOGLOBIN 27.8 pg (28.0-32.0); MEAN CORPUSCULAR VOLUME 88.6 fL (81.0-99.0); MEAN PLATELET VOLUME 9.5 fl (7.4-10.4); MONOCYTES % 11.2 % (2.0-8.0); NEUTROPHILS % 63.8 % (40.0-76.0); PLATELET 127 x1000/uL (130-400); RED BLOOD CELL COUNT 3.78 mill/uL (4.2-5.4); RED CELL DISTRIBUTION WIDTH 19.8 % (11.6-14.6)
[2018-06-24 08:00] VITALS: BP 128/64
[2018-06-24] MEDS: ENOXAPARIN 30MG/0.3ML SYR SUBCUT SCH (09:00)
[2018-06-24] MEDS: ASPIRIN 81MG EC TABLET PO SCH (09:00)
[2018-06-24] MEDS: LOSARTAN POTASSIUM 25 MG TABLET PO SCH (09:00)
[2018-06-24] MEDS: CARVEDILOL 3.125 MG TABLET PO SCH ×2 (09:46→21:01)
[2018-06-24 12:00] VITALS: BP 142/76
[2018-06-24 16:00] VITALS: BP 135/68
[2018-06-24 20:00] VITALS: BP 122/74
[2018-06-25] VITALS (7 sets, daily range): BP systolic 140–177; BP diastolic 66–93
[2018-06-25] MEDS: LORAZEPAM 2MG/ML CPJ IV PRN (04:28)
[2018-06-25] MEDS: CLONIDINE 0.1MG TABLET PO PRN (04:37)
[2018-06-25] MEDS: ACETAMINOPHEN 325MG TABLET PO PRN ×2 (04:37→09:59)
[2018-06-25] MEDS: TRAMADOL 50MG TABLET PO PRN (05:44)
[2018-06-25] MEDS: BLOOD SUGAR DIAGNOSTIC STRIP TEST SCH ×3 (05:47→17:27)
[2018-06-25] MEDS: INSULIN LISPRO 100 UNITS/ML SUBCUT SCH ×3 (05:47→17:36)
[2018-06-25] MEDS: SODIUM CHLORIDE 0.9% INJ 3ML FLUSH IVF SCH ×2 (05:47→17:37)
[2018-06-25 06:34] LABS: EOSINOPHILS % 5.7 % (0.0-5.0); HEMATOCRIT. 32.8 % (36.0-48.0); HEMOGLOBIN. 10.5 g/dL (12.0-16.0); MEAN CORPUSCULAR VOLUME 87.5 fL (81.0-99.0); MONOCYTES % 11.8 % (2.0-8.0); NEUTROPHILS % 65.5 % (40.0-76.0); PLATELET 118 x1000/uL (130-400); RED BLOOD CELL COUNT 3.75 mill/uL (4.2-5.4); RED CELL DISTRIBUTION WIDTH 18.7 % (11.6-14.6)
[2018-06-25] MEDS ORDERED: DIPHENOXYLATE/ATROPINE 2.5/0.025MG TABLET PO PRN (12:45)
[2018-06-25] MEDS: CARVEDILOL 3.125 MG TABLET PO SCH (12:58)
[2018-06-25] MEDS: ENOXAPARIN 30MG/0.3ML SYR SUBCUT SCH (12:59)
[2018-06-25] MEDS: LOSARTAN POTASSIUM 25 MG TABLET PO SCH (12:59)
[2018-06-25] MEDS: ASPIRIN 81MG EC TABLET PO SCH (12:59)
== END 2018-06-25 19:20 | disposition home health service (06) | DRG 291 ==
LOC: ER 20:08 → 8WST 06-20 07:34 → EDBEDREQ 06-20 07:37 → ENRESERV 06-20 10:47
PROVIDERS: ADMIT Internal Medicine; ATTEND Internal Medicine
PROC: 5A1D70Z Performance of Urinary Filtration, Intermittent, Less than 6 Hours Per Day (ICD-10-PCS; principal; 2018-06-20)
PROC: 5A1D70Z Performance of Urinary Filtration, Intermittent, Less than 6 Hours Per Day (ICD-10-PCS; 2018-06-21)
PROC: 5A1D70Z Performance of Urinary Filtration, Intermittent, Less than 6 Hours Per Day (ICD-10-PCS; 2018-06-22)
PROC: 5A1D70Z Performance of Urinary Filtration, Intermittent, Less than 6 Hours Per Day (ICD-10-PCS; 2018-06-23)
PROC: 5A1D70Z Performance of Urinary Filtration, Intermittent, Less than 6 Hours Per Day (ICD-10-PCS; 2018-06-25)
DX: I13.2 Hypertensive heart and chronic kidney disease with heart failure and with stage 5 chronic kidney disease, or end stage renal disease (principal); N18.6 End stage renal disease; R45.851 Suicidal ideations; I50.20 Unspecified systolic (congestive) heart failure; I42.9 Cardiomyopathy, unspecified; Z99.2 Dependence on renal dialysis; E11.22 Type 2 diabetes mellitus with diabetic chronic kidney disease; E87.5 Hyperkalemia; D72.819 Decreased white blood cell count, unspecified; D64.9 Anemia, unspecified; E11.40 Type 2 diabetes mellitus with diabetic neuropathy, unspecified; E78.5 Hyperlipidemia, unspecified; I07.1 Rheumatic tricuspid insufficiency; F32.9 Major depressive disorder, single episode, unspecified; H54.7 Unspecified visual loss; I27.20 Pulmonary hypertension, unspecified; I37.1 Nonrheumatic pulmonary valve insufficiency; Z88.5 Allergy status to narcotic agent; Z79.899 Other long term (current) drug therapy; R74.8 Abnormal levels of other serum enzymes; R10.9 Unspecified abdominal pain; R07.9 Chest pain, unspecified; M79.606 Pain in leg, unspecified
CPT/HCPCS: 36415; 71045; 80048; 80061; 80305; 82550; 82553; 82962; 83036; 83880; 84132; 84439; 84443; 84484; 84520; 85379; 93005; 93306; 93970; 96374; 97162; 99291; C1893; J1200; J1650; J1815; J2060; J2270; J3010; J3490; J7060; J7620; Q0163

== ENCOUNTER 2018-07-08 04:01 | Inpatient (IN) | payer MEDICARE, MEDICAID ==
[~2018-07-08] VITALS: Ht 165.1 cm; Wt 79.8 kg
[2018-07-08] MEDS ORDERED: MORPHINE SULFATE 4 MG/ML CPJ (NOT FOR IM USE) IV STA (06:27)
[2018-07-08] MEDS ORDERED: SODIUM CHLORIDE 0.9% 1,000 ML IV ONE (06:27)
[2018-07-08] MEDS ORDERED: ONDANSETRON HCL 4MG/2ML INJ IV STA (06:27)
[2018-07-08 07:40] LABS: BASOPHILS % 1.3 % (0.0-2.0); EOSINOPHILS % 1.1 % (0.0-5.0); HEMATOCRIT. 36.3 % (36.0-48.0); HEMOGLOBIN. 11.5 g/dL (12.0-16.0); LYMPHOCYTES % 7.7 % (20.0-50.0); MEAN CORPUSCULAR HEMOGLOBIN 28.4 pg (28.0-32.0); MEAN CORPUSCULAR VOLUME 89.7 fL (81.0-99.0); NEUTROPHILS % 84.9 % (40.0-76.0); RED BLOOD CELL COUNT 4.04 mill/uL (4.2-5.4); RED CELL DISTRIBUTION WIDTH 18.8 % (11.6-14.6)
[2018-07-08 07:44] LABS: INR 1.1; PROTHROMBIN TIME 10.8 sec (9.1-11.1)
[2018-07-08 07:45] LABS: CHLORIDE 100 mEq/L (98-107)
[2018-07-08 08:34] LABS: PLATELET 108 x1000/uL (130-400)
[2018-07-08] MEDS ORDERED: VISCOUS LIDOCAINE 2% 15 ML UDC PO ONE (09:15)
[2018-07-08] MEDS ORDERED: ONDANSETRON HCL 4MG/2ML INJ IV ONE (09:15)
[2018-07-08] MEDS ORDERED: MAGNESIUM/ALUMINUM HYDROXIDE/SIMETHICONE 30ML UDC PO ONE (09:15)
[2018-07-08] MEDS ORDERED: LORAZEPAM 2MG/ML CPJ IV ONE (09:15)
[2018-07-08] MEDS ORDERED: ENOXAPARIN 40MG/0.4ML SYR SUBCUT SCH (14:45)
[2018-07-08] MEDS ORDERED: IPRATROPIUM/ALBUTEROL 0.5-3(2.5)MG/3ML NEB INH PRN (14:45)
[2018-07-08] MEDS ORDERED: GUAIFENESIN 200MG/10ML SUGAR FREE UDC PO PRN (14:45)
[2018-07-08] MEDS ORDERED: LORAZEPAM 2MG/ML CPJ IV PRN (14:45)
[2018-07-08] MEDS ORDERED: HYDROMORPHONE HCL/PF 2MG/ML CPJ IV PRN (14:45)
[2018-07-08] MEDS ORDERED: DOCUSATE SODIUM 100MG CAPSULE PO PRN (14:45)
[2018-07-08] MEDS ORDERED: MAGNESIUM/ALUMINUM HYDROXIDE/SIMETHICONE 30ML UDC PO PRN (14:45)
[2018-07-08] MEDS ORDERED: NA PHOS,M-B/NA PHOS,DI-BA ENEMA 118ML PR PRN (14:45)
[2018-07-08] MEDS ORDERED: HYDRALAZINE 20MG/ML VIAL IV PRN ×2 (16:30→17:15)
[2018-07-08] MEDS ORDERED: NIFEDIPINE XL 30MG TAB PO SCH (17:00)
[2018-07-08] MEDS ORDERED: IPRATROPIUM/ALBUTEROL 0.5-3(2.5)MG/3ML NEB HHN PRN ×2 (17:00→17:15)
[2018-07-08 17:20] VITALS: BP 185/100
[2018-07-08] MEDS ORDERED: ENOXAPARIN 30MG/0.3ML SYR SUBCUT SCH (18:15)
[2018-07-08] MEDS: CLONIDINE 0.1MG TABLET PO PRN (18:44)
[2018-07-08] MEDS: ONDANSETRON HCL 4MG/2ML INJ IV PRN (18:50)
[2018-07-08 20:00] VITALS: BP 187/117
[2018-07-08] MEDS ORDERED: DEXTROSE 50% WATER 50ML SYRINGE IV PRN (21:00)
[2018-07-08] MEDS ORDERED: CARVEDILOL 3.125 MG TABLET PO SCH (21:00)
[2018-07-08] MEDS: INSULIN LISPRO 100 UNITS/ML SUBCUT SCH (21:00)
[2018-07-08] MEDS: BLOOD SUGAR DIAGNOSTIC STRIP TEST SCH (21:10)
[2018-07-08] MEDS ORDERED: SODIUM POLYSTYRENE SULFONATE 15 G/60 ML BOT PO NR (21:15)
[2018-07-08] MEDS ORDERED: HYDRALAZINE HCL 100MG TABLET PO SCH (22:00)
[2018-07-08 22:25] VITALS: BP 159/101
[2018-07-08] MEDS: CARVEDILOL 3.125 MG TABLET PO SCH (22:28)
[2018-07-08] MEDS: NIFEDIPINE XL 30MG TAB PO SCH (22:29)
[2018-07-08] MEDS: HYDRALAZINE HCL 100MG TABLET PO SCH (22:29)
[2018-07-08] MEDS: HYDROMORPHONE HCL/PF 2MG/ML CPJ IV PRN (22:53)
[2018-07-09] VITALS: BP 139/91
[2018-07-09] MEDS: ONDANSETRON HCL 4MG/2ML INJ IV PRN ×2 (01:18→06:46)
[2018-07-09] MEDS: DIPHENHYDRAMINE 50MG/ML VIAL IV PRN (01:18)
[2018-07-09 04:00] VITALS: BP 166/96
[2018-07-09] MEDS: HYDRALAZINE HCL 100MG TABLET PO SCH ×3 (06:00→22:00)
[2018-07-09] MEDS: BLOOD SUGAR DIAGNOSTIC STRIP TEST SCH ×4 (06:02→20:38)
[2018-07-09] MEDS: INSULIN LISPRO 100 UNITS/ML SUBCUT SCH ×4 (06:11→20:39)
[2018-07-09 08:00] VITALS: BP 166/98
[2018-07-09] MEDS: NIFEDIPINE XL 30MG TAB PO SCH ×2 (09:00→20:58)
[2018-07-09] MEDS ORDERED: ASPIRIN 81MG EC TABLET PO SCH ×2 (09:00)
[2018-07-09] MEDS: CARVEDILOL 3.125 MG TABLET PO SCH ×2 (09:00→20:58)
[2018-07-09] MEDS ORDERED: PANTOPRAZOLE SODIUM 40 MG/VIAL IV SCH ×2 (09:00→10:27)
[2018-07-09 09:51] LABS: HEMATOCRIT. 35.5 % (36.0-48.0); HEMOGLOBIN. 11.2 g/dL (12.0-16.0); MEAN CORPUSCULAR HEMOGLOBIN 27.9 pg (28.0-32.0); MEAN CORPUSCULAR VOLUME 88.5 fL (81.0-99.0); MEAN PLATELET VOLUME 9.8 fl (7.4-10.4); PLATELET 128 x1000/uL (130-400); RED BLOOD CELL COUNT 4.02 mill/uL (4.2-5.4); RED CELL DISTRIBUTION WIDTH 19.2 % (11.6-14.6)
[2018-07-09 10:10] LABS: CHLORIDE 98 mEq/L (98-107)
[2018-07-09 10:21] LABS: LDL CHOLESTEROL 52 mg/dL (5-100)
[2018-07-09 10:22] LABS: CREATINE KINASE 506 IU/L (26-192); HDL CHOLESTEROL 72 mg/dL (40-59); T4 FREE 0.97 ng/dL (0.76-1.46)
[2018-07-09 10:23] LABS: CREATINE KINASE MB FRACTION 4.2 ng/mL (0.5-3.6)
[2018-07-09 12:00] VITALS: BP 184/104
[2018-07-09] MEDS ORDERED: PANTOPRAZOLE 40MG DR TABLET PO SCH (12:00)
[2018-07-09 12:49] LABS: TOTAL IRON BINDING CAPACITY 284 ug/dL (250-450)
[2018-07-09 13:19] LABS: PLATELET ESTIMATE SLIGHTLY DECREASED
[2018-07-09 16:00] VITALS: BP 150/86
[2018-07-09 17:24] LABS: HEPATITIS B SURFACE ANTIGEN NEGATIVE
[2018-07-09] MEDS ORDERED: LORAZEPAM 2MG/ML CPJ IM PRN (17:45)
[2018-07-09 17:53] LABS: HEPATITIS A AB IGM NEGATIVE (NEGATIVE)
[2018-07-09 20:00] VITALS: BP 162/97
[2018-07-09] MEDS: PANTOPRAZOLE SODIUM 40 MG/VIAL IV SCH (20:57)
[2018-07-09] MEDS ORDERED: ONDANSETRON 4MG ODT PO PRN (23:15)
[2018-07-10] VITALS: BP 153/63
[2018-07-10] MEDS: HYDRALAZINE HCL 100MG TABLET PO SCH ×4 (01:23→21:12)
[2018-07-10] MEDS: HYDROCODONE/ACETAMINOPHEN 10/325MG TABLET PO PRN (01:30)
[2018-07-10 04:00] VITALS: BP 140/79
[2018-07-10 06:11] LABS: BASOPHILS % 1.1 % (0.0-2.0); EOSINOPHILS % 0.9 % (0.0-5.0); HEMATOCRIT. 33.7 % (36.0-48.0); LYMPHOCYTES % 9.2 % (20.0-50.0); MEAN CORPUSCULAR HEMOGLOBIN 28.7 pg (28.0-32.0); MEAN CORPUSCULAR VOLUME 88.3 fL (81.0-99.0); MEAN PLATELET VOLUME 9.1 fl (7.4-10.4); MONOCYTES % 9.4 % (2.0-8.0); NEUTROPHILS % 79.4 % (40.0-76.0); PLATELET 124 x1000/uL (130-400); RED BLOOD CELL COUNT 3.82 mill/uL (4.2-5.4); RED CELL DISTRIBUTION WIDTH 18.6 % (11.6-14.6)
[2018-07-10] MEDS: BLOOD SUGAR DIAGNOSTIC STRIP TEST SCH ×4 (06:15→19:49)
[2018-07-10] MEDS: INSULIN LISPRO 100 UNITS/ML SUBCUT SCH ×4 (06:27→21:24)
[2018-07-10 07:05] LABS: CHLORIDE 100 mEq/L (98-107)
[2018-07-10] MEDS ORDERED: PANTOPRAZOLE 40MG DR TABLET PO SCH (07:10)
[2018-07-10] MEDS: DIPHENHYDRAMINE 25MG CAPSULE PO PRN ×2 (07:42→21:20)
[2018-07-10 08:00] VITALS: BP 115/66
[2018-07-10] MEDS: NIFEDIPINE XL 30MG TAB PO SCH ×2 (09:00→21:00)
[2018-07-10] MEDS: PANTOPRAZOLE SODIUM 40 MG/VIAL IV SCH ×2 (11:02→21:27)
[2018-07-10] MEDS: CARVEDILOL 3.125 MG TABLET PO SCH ×2 (11:03→21:00)
[2018-07-10] MEDS: HYDROMORPHONE HCL/PF 2MG/ML CPJ IV PRN (11:03)
[2018-07-10 12:00] VITALS: BP 118/74
[2018-07-10] MEDS: DIPHENHYDRAMINE 50MG/ML VIAL IV PRN (14:28)
[2018-07-10 16:00] VITALS: BP 140/74
[2018-07-10 20:00] VITALS: BP 99/60
[2018-07-11] VITALS: BP 150/82
[2018-07-11 03:55] VITALS: BP 163/89
[2018-07-11] MEDS: DIPHENHYDRAMINE 25MG CAPSULE PO PRN (04:05)
[2018-07-11] MEDS: HYDROCODONE/ACETAMINOPHEN 10/325MG TABLET PO PRN (04:06)
[2018-07-11] MEDS: HYDRALAZINE HCL 100MG TABLET PO SCH ×3 (05:19→21:02)
[2018-07-11] MEDS: BLOOD SUGAR DIAGNOSTIC STRIP TEST SCH ×4 (06:13→20:54)
[2018-07-11] MEDS: INSULIN LISPRO 100 UNITS/ML SUBCUT SCH ×4 (06:29→21:04)
[2018-07-11 07:02] LABS: BASOPHILS % 1.3 % (0.0-2.0); HEMATOCRIT. 36.9 % (36.0-48.0); HEMOGLOBIN. 11.9 g/dL (12.0-16.0); LYMPHOCYTES % 15.3 % (20.0-50.0); MEAN CORPUSCULAR HEMOGLOBIN 28.6 pg (28.0-32.0); MEAN CORPUSCULAR VOLUME 88.3 fL (81.0-99.0); MEAN PLATELET VOLUME 9.4 fl (7.4-10.4); MONOCYTES % 12.1 % (2.0-8.0); NEUTROPHILS % 68.3 % (40.0-76.0); PLATELET 137 x1000/uL (130-400); RED BLOOD CELL COUNT 4.18 mill/uL (4.2-5.4); RED CELL DISTRIBUTION WIDTH 18.5 % (11.6-14.6)
[2018-07-11 08:00] VITALS: BP 166/90
[2018-07-11] MEDS: CARVEDILOL 3.125 MG TABLET PO SCH ×2 (08:07→21:02)
[2018-07-11] MEDS: PANTOPRAZOLE SODIUM 40 MG/VIAL IV SCH ×2 (08:07→21:02)
[2018-07-11] MEDS: NIFEDIPINE XL 30MG TAB PO SCH (08:08)
[2018-07-11 12:00] VITALS: BP 141/86
[2018-07-11] MEDS: CLONIDINE 0.1MG TABLET PO PRN (16:14)
[2018-07-11 16:33] VITALS: BP 176/90
[2018-07-11] MEDS: HYDROMORPHONE HCL/PF 2MG/ML CPJ IV PRN (17:55)
[2018-07-11 20:00] VITALS: BP 142/90
[2018-07-11] MEDS ORDERED: CARVEDILOL 6.25 MG TABLET PO SCH (21:00)
[2018-07-11] MEDS: NIFEDIPINE XL 60MG TAB PO SCH (21:03)
[2018-07-11] MEDS: DIPHENHYDRAMINE 50MG/ML VIAL IV PRN (21:23)
[2018-07-12] VITALS: BP 135/85
[2018-07-12 04:00] VITALS: BP 145/93
[2018-07-12] MEDS: HYDRALAZINE HCL 100MG TABLET PO SCH ×2 (05:25→14:00)
[2018-07-12] MEDS: INSULIN LISPRO 100 UNITS/ML SUBCUT SCH ×2 (06:26→12:30)
[2018-07-12] MEDS: HYDROMORPHONE HCL/PF 2MG/ML CPJ IV PRN (06:26)
[2018-07-12] MEDS: BLOOD SUGAR DIAGNOSTIC STRIP TEST SCH ×2 (06:41→11:59)
[2018-07-12 08:00] VITALS: BP 143/77
[2018-07-12 08:17] LABS: BASOPHILS % 1.1 % (0.0-2.0); EOSINOPHILS % 4.4 % (0.0-5.0); HEMATOCRIT. 34.9 % (36.0-48.0); HEMOGLOBIN. 11.4 g/dL (12.0-16.0); LYMPHOCYTES % 10.3 % (20.0-50.0); MEAN CORPUSCULAR HEMOGLOBIN 28.5 pg (28.0-32.0); MEAN CORPUSCULAR VOLUME 87.2 fL (81.0-99.0); MEAN PLATELET VOLUME 9.4 fl (7.4-10.4); MONOCYTES % 12.8 % (2.0-8.0); NEUTROPHILS % 71.4 % (40.0-76.0); PLATELET 129 x1000/uL (130-400); RED CELL DISTRIBUTION WIDTH 18.6 % (11.6-14.6)
[2018-07-12] MEDS: NIFEDIPINE XL 60MG TAB PO SCH (09:00)
[2018-07-12] MEDS: CARVEDILOL 3.125 MG TABLET PO SCH (09:00)
[2018-07-12] MEDS: PANTOPRAZOLE SODIUM 40 MG/VIAL IV SCH (09:00)
[2018-07-12 12:00] VITALS: BP 147/76
[2018-07-12] MEDS ORDERED: HYDROCORTISONE 1% RECTAL CREAM 30GM PR SCH (12:00)
[2018-07-12 13:58] VITALS: BP 143/77
[2018-07-12] MEDS ORDERED: CALAMINE LOTION 120ML TOP SCH (14:00)
[2018-07-12 16:00] VITALS: BP 149/82
== END 2018-07-12 17:13 | disposition home or self-care (01) | DRG 640 ==
LOC: ER 04:01 → 8WST 13:55 → EDBEDREQ 14:00 → ENRESERV 15:50 → ER 17:05
PROVIDERS: ADMIT Internal Medicine; ATTEND Internal Medicine
PROC: 5A1D70Z Performance of Urinary Filtration, Intermittent, Less than 6 Hours Per Day (ICD-10-PCS; principal; 2018-07-09)
PROC: 05HY33Z Insertion of Infusion Device into Upper Vein, Percutaneous Approach (ICD-10-PCS; 2018-07-10)
PROC: B54NZZA Ultrasonography of Left Upper Extremity Veins, Guidance (ICD-10-PCS; 2018-07-10)
PROC: B51C1ZA Fluoroscopy of Left Lower Extremity Veins using Low Osmolar Contrast, Guidance (ICD-10-PCS; 2018-07-10)
PROC: 5A1D70Z Performance of Urinary Filtration, Intermittent, Less than 6 Hours Per Day (ICD-10-PCS; 2018-07-11)
DX: E87.70 Fluid overload, unspecified (principal); J96.00 Acute respiratory failure, unspecified whether with hypoxia or hypercapnia; N18.6 End stage renal disease; R65.10 Systemic inflammatory response syndrome (SIRS) of non-infectious origin without acute organ dysfunction; E46 Unspecified protein-calorie malnutrition; I42.0 Dilated cardiomyopathy; I13.2 Hypertensive heart and chronic kidney disease with heart failure and with stage 5 chronic kidney disease, or end stage renal disease; I50.20 Unspecified systolic (congestive) heart failure; E87.5 Hyperkalemia; E11.319 Type 2 diabetes mellitus with unspecified diabetic retinopathy without macular edema; K31.84 Gastroparesis; E11.43 Type 2 diabetes mellitus with diabetic autonomic (poly)neuropathy; K80.20 Calculus of gallbladder without cholecystitis without obstruction; I25.10 Atherosclerotic heart disease of native coronary artery without angina pectoris; D50.9 Iron deficiency anemia, unspecified; D69.6 Thrombocytopenia, unspecified; E11.22 Type 2 diabetes mellitus with diabetic chronic kidney disease; H54.7 Unspecified visual loss; I07.1 Rheumatic tricuspid insufficiency; I27.20 Pulmonary hypertension, unspecified; K59.00 Constipation, unspecified; L29.9 Pruritus, unspecified; Z79.4 Long term (current) use of insulin; Z79.899 Other long term (current) drug therapy; Z99.2 Dependence on renal dialysis; Z91.19 Patient's noncompliance with other medical treatment and regimen; Z68.29 Body mass index [BMI] 29.0-29.9, adult
CPT/HCPCS: 36415; 36569; 36573; 71045; 74176; 76700; 80048; 80061; 82550; 82553; 82728; 82962; 83540; 83550; 83735; 84132; 84439; 84443; 84484; 85379; 86705; 86709; 86803; 87340; 93005; 93970; 96361; 96374; 96375; 96376; 99285; C1725; C1893; C9113; J1170; J1200; J1650; J1815; J2060; J2270; J2405; J7030; Q0163

== ENCOUNTER 2018-08-10 08:56 | Inpatient (IN) | payer MEDICARE, MEDICAID ==
[~2018-08-10] VITALS: Ht 160 cm; Wt 75.9 kg
[~2018-08-10 08:56] MED LIST changes: -NITR100C PO; -PHEN-910 PO
[2018-08-10 10:08] LABS: BASOPHILS % 1.3 % (0.0-2.0); EOSINOPHILS % 4.4 % (0.0-5.0); HEMOGLOBIN. 12.6 g/dL (12.0-16.0); LYMPHOCYTES % 11.7 % (20.0-50.0); MEAN CORPUSCULAR HEMOGLOBIN 28.1 pg (28.0-32.0); MEAN CORPUSCULAR VOLUME 87.1 fL (81.0-99.0); MEAN PLATELET VOLUME 8.9 fl (7.4-10.4); MONOCYTES % 8.7 % (2.0-8.0); NEUTROPHILS % 73.9 % (40.0-76.0); PLATELET 116 x1000/uL (130-400); RED BLOOD CELL COUNT 4.48 mill/uL (4.2-5.4); RED CELL DISTRIBUTION WIDTH 17.1 % (11.6-14.6)
[2018-08-10 10:15] LABS: CHLORIDE 102 mEq/L (98-107)
[2018-08-10 10:16] LABS: PROTHROMBIN TIME 10.5 sec (9.6-11.0)
[2018-08-10] MEDS ORDERED: ASPIRIN 81MG TABLET PO ONE (11:00)
[2018-08-10] MEDS ORDERED: ONDANSETRON HCL 4MG/2ML INJ IV STA (11:19)
[2018-08-10] MEDS ORDERED: LORAZEPAM 2MG/ML CPJ IV ONE (11:30)
[2018-08-10] MEDS ORDERED: DOCUSATE SODIUM 100MG CAPSULE PO PRN (12:00)
[2018-08-10] MEDS ORDERED: DIPHENHYDRAMINE 50MG/ML VIAL IV PRN (12:00)
[2018-08-10] MEDS ORDERED: HYDRALAZINE 20MG/ML VIAL IV PRN (12:00)
[2018-08-10] MEDS ORDERED: ENOXAPARIN 40MG/0.4ML SYR SUBCUT SCH (12:00)
[2018-08-10] MEDS ORDERED: ONDANSETRON HCL 4MG/2ML INJ IV PRN (12:00)
[2018-08-10] MEDS ORDERED: MAGNESIUM/ALUMINUM HYDROXIDE/SIMETHICONE 30ML UDC PO PRN (12:00)
[2018-08-10] MEDS ORDERED: CLONIDINE 0.1MG TABLET PO PRN (12:00)
[2018-08-10 13:00] VITALS: BP 162/92
[2018-08-10] MEDS: GUAIFENESIN 200MG/10ML SUGAR FREE UDC PO PRN ×2 (13:24→18:04)
[2018-08-10] MEDS: ENOXAPARIN 30MG/0.3ML SYR SUBCUT SCH (13:27)
[2018-08-10 15:15] LABS: CREATINE KINASE MB FRACTION 3.1 ng/mL (0.5-3.6)
[2018-08-10] MEDS ORDERED: DEXTROSE 50% WATER 50ML SYRINGE IV PRN (15:30)
[2018-08-10 16:00] VITALS: BP 142/80
[2018-08-10] MEDS: SODIUM CHLORIDE 0.9% INJ 3ML FLUSH IVF SCH ×2 (17:58→21:18)
[2018-08-10] MEDS: CLONIDINE 0.1MG TABLET PO SCH (18:06)
[2018-08-10] MEDS: BLOOD SUGAR DIAGNOSTIC STRIP TEST SCH ×2 (18:11→20:35)
[2018-08-10] MEDS: INSULIN LISPRO 100 UNITS/ML SUBCUT SCH ×2 (18:32→20:35)
[2018-08-10 20:00] VITALS: BP 130/81
[2018-08-10 20:16] VITALS: BP 149/96
[2018-08-10] MEDS: LORAZEPAM 2MG/ML CPJ IV PRN (21:18)
[2018-08-10] MEDS: AMLODIPINE 5MG TABLET PO SCH (21:18)
[2018-08-11] VITALS: BP 138/87
[2018-08-11] MEDS: CLONIDINE 0.1MG TABLET PO SCH ×3 (00:47→17:46)
[2018-08-11 04:00] VITALS: BP 109/68
[2018-08-11] MEDS: SODIUM CHLORIDE 0.9% INJ 3ML FLUSH IVF SCH ×3 (05:02→21:01)
[2018-08-11] MEDS: ACETAMINOPHEN 325MG TABLET PO PRN (05:03)
[2018-08-11] MEDS: BLOOD SUGAR DIAGNOSTIC STRIP TEST SCH ×4 (06:52→21:01)
[2018-08-11] MEDS: INSULIN LISPRO 100 UNITS/ML SUBCUT SCH ×4 (07:45→21:03)
[2018-08-11] MEDS: AMLODIPINE 5MG TABLET PO SCH ×2 (08:17→21:01)
[2018-08-11 08:40] VITALS: BP 127/76
[2018-08-11] MEDS: GUAIFENESIN 200MG/10ML SUGAR FREE UDC PO PRN ×2 (09:25→21:00)
[2018-08-11] MEDS: LORAZEPAM 2MG/ML CPJ IV PRN ×3 (09:26→21:03)
[2018-08-11 09:28] LABS: BASOPHILS % 0.9 % (0.0-2.0); EOSINOPHILS % 0.9 % (0.0-5.0); HEMATOCRIT. 36.3 % (36.0-48.0); HEMOGLOBIN. 11.5 g/dL (12.0-16.0); LYMPHOCYTES % 10.5 % (20.0-50.0); MEAN CORPUSCULAR HEMOGLOBIN 27.8 pg (28.0-32.0); MEAN PLATELET VOLUME 9.5 fl (7.4-10.4); MONOCYTES % 9.9 % (2.0-8.0); NEUTROPHILS % 77.8 % (40.0-76.0); PLATELET 84 x1000/uL (130-400); RED BLOOD CELL COUNT 4.13 mill/uL (4.2-5.4); RED CELL DISTRIBUTION WIDTH 17.1 % (11.6-14.6)
[2018-08-11 09:34] LABS: CHLORIDE 102 mEq/L (98-107)
[2018-08-11 09:45] LABS: CREATINE KINASE 500 IU/L (26-192)
[2018-08-11 12:20] VITALS: BP 107/55
[2018-08-11] MEDS: ENOXAPARIN 30MG/0.3ML SYR SUBCUT SCH (12:28)
[2018-08-11] MEDS ORDERED: SODIUM POLYSTYRENE SULFONATE 15 G/60 ML BOT PO SCH (14:00)
[2018-08-11 17:38] VITALS: BP 117/66
[2018-08-11 20:29] VITALS: BP 140/77
[2018-08-12] VITALS: BP 131/68
[2018-08-12] MEDS: CLONIDINE 0.1MG TABLET PO SCH ×3 (00:07→18:15)
[2018-08-12] MEDS: GUAIFENESIN 200MG/10ML SUGAR FREE UDC PO PRN ×3 (02:32→18:45)
[2018-08-12] MEDS: LORAZEPAM 2MG/ML CPJ IV PRN ×2 (03:32→13:14)
[2018-08-12 04:00] VITALS: BP 114/67
[2018-08-12] MEDS: ACETAMINOPHEN 325MG TABLET PO PRN ×2 (05:15→09:07)
[2018-08-12] MEDS: SODIUM CHLORIDE 0.9% INJ 3ML FLUSH IVF SCH ×3 (05:15→21:23)
[2018-08-12 06:33] LABS: BASOPHILS % 0.6 % (0.0-2.0); EOSINOPHILS % 4.3 % (0.0-5.0); HEMATOCRIT. 35.1 % (36.0-48.0); HEMOGLOBIN. 11.2 g/dL (12.0-16.0); LYMPHOCYTES % 9.6 % (20.0-50.0); MEAN CORPUSCULAR VOLUME 87.9 fL (81.0-99.0); MEAN PLATELET VOLUME 9.8 fl (7.4-10.4); MONOCYTES % 11.7 % (2.0-8.0); NEUTROPHILS % 73.8 % (40.0-76.0); PLATELET 86 x1000/uL (130-400); RED BLOOD CELL COUNT 3.99 mill/uL (4.2-5.4); RED CELL DISTRIBUTION WIDTH 16.9 % (11.6-14.6)
[2018-08-12] MEDS: BLOOD SUGAR DIAGNOSTIC STRIP TEST SCH ×4 (06:41→21:23)
[2018-08-12 08:00] VITALS: BP 119/65
[2018-08-12] MEDS: AMLODIPINE 5MG TABLET PO SCH ×2 (09:00→21:00)
[2018-08-12] MEDS: IPRATROPIUM/ALBUTEROL 0.5-3(2.5)MG/3ML NEB INH PRN (09:16)
[2018-08-12] MEDS: INSULIN LISPRO 100 UNITS/ML SUBCUT SCH ×4 (09:23→21:00)
[2018-08-12 12:00] VITALS: BP 132/76
[2018-08-12] MEDS: ENOXAPARIN 30MG/0.3ML SYR SUBCUT SCH (14:27)
[2018-08-12 16:00] VITALS: BP 142/70
[2018-08-12 20:00] VITALS: BP 104/86
[2018-08-13] MEDS: LORAZEPAM 2MG/ML CPJ IV PRN ×2 (00:06→09:55)
[2018-08-13] MEDS: CLONIDINE 0.1MG TABLET PO SCH ×2 (00:06→08:57)
[2018-08-13 00:16] VITALS: BP 155/68
[2018-08-13] MEDS: SODIUM CHLORIDE 0.9% INJ 3ML FLUSH IVF SCH ×2 (04:27→14:00)
[2018-08-13 04:38] VITALS: BP 149/86
[2018-08-13] MEDS: IPRATROPIUM/ALBUTEROL 0.5-3(2.5)MG/3ML NEB INH PRN ×2 (05:21→14:45)
[2018-08-13] MEDS: BLOOD SUGAR DIAGNOSTIC STRIP TEST SCH ×2 (06:23→12:35)
[2018-08-13 06:39] LABS: BASOPHILS % 0.8 % (0.0-2.0); EOSINOPHILS % 6.9 % (0.0-5.0); HEMATOCRIT. 32.1 % (36.0-48.0); HEMOGLOBIN. 10.4 g/dL (12.0-16.0); MEAN CORPUSCULAR HEMOGLOBIN 28.1 pg (28.0-32.0); MEAN PLATELET VOLUME 9.9 fl (7.4-10.4); MONOCYTES % 11.1 % (2.0-8.0); NEUTROPHILS % 68.2 % (40.0-76.0); PLATELET 98 x1000/uL (130-400); RED BLOOD CELL COUNT 3.68 mill/uL (4.2-5.4); RED CELL DISTRIBUTION WIDTH 16.9 % (11.6-14.6)
[2018-08-13 08:00] VITALS: BP 183/84
[2018-08-13] MEDS: AMLODIPINE 5MG TABLET PO SCH (08:56)
[2018-08-13] MEDS: INSULIN LISPRO 100 UNITS/ML SUBCUT SCH ×2 (09:17→14:31)
[2018-08-13] MEDS: GUAIFENESIN 200MG/10ML SUGAR FREE UDC PO PRN (09:55)
[2018-08-13 12:38] VITALS: BP 116/58
[2018-08-13 13:54] VITALS: BP 116/58
[2018-08-13] MEDS: ENOXAPARIN 30MG/0.3ML SYR SUBCUT SCH (14:14)
== END 2018-08-13 15:00 | disposition short-term general hospital (02) | DRG 304 ==
LOC: ER 08:56 → 6WST 11:33 → ENRESERV 11:51 → 6WST 08-12 14:27
PROVIDERS: ADMIT Internal Medicine; ATTEND Internal Medicine
PROC: 5A1D70Z Performance of Urinary Filtration, Intermittent, Less than 6 Hours Per Day (ICD-10-PCS; principal; 2018-08-11)
PROC: 5A1D70Z Performance of Urinary Filtration, Intermittent, Less than 6 Hours Per Day (ICD-10-PCS; 2018-08-13)
DX: I16.9 Hypertensive crisis, unspecified (principal); N18.6 End stage renal disease; I50.22 Chronic systolic (congestive) heart failure; I31.3 Pericardial effusion (noninflammatory); I13.2 Hypertensive heart and chronic kidney disease with heart failure and with stage 5 chronic kidney disease, or end stage renal disease; R53.1 Weakness; E87.5 Hyperkalemia; Z99.2 Dependence on renal dialysis; E11.22 Type 2 diabetes mellitus with diabetic chronic kidney disease; E11.21 Type 2 diabetes mellitus with diabetic nephropathy; E11.319 Type 2 diabetes mellitus with unspecified diabetic retinopathy without macular edema; E11.40 Type 2 diabetes mellitus with diabetic neuropathy, unspecified; H54.8 Legal blindness, as defined in USA; D64.9 Anemia, unspecified; I08.1 Rheumatic disorders of both mitral and tricuspid valves; F41.9 Anxiety disorder, unspecified; I27.20 Pulmonary hypertension, unspecified; K21.9 Gastro-esophageal reflux disease without esophagitis; Z79.4 Long term (current) use of insulin; Z79.899 Other long term (current) drug therapy; Z88.5 Allergy status to narcotic agent; Z86.19 Personal history of other infectious and parasitic diseases
CPT/HCPCS: 36415; 71045; 73030; 80048; 82550; 82553; 82962; 84484; 87804; 93005; 93306; 96374; 96375; 97162; 99285; C1893; J1650; J1815; J2060; J2405; J7620

== ENCOUNTER 2018-09-01 16:05 | Emergency (ER) | payer MEDICARE, MEDICAID ==
[~2018-09-01] VITALS: Ht 165.1 cm; Wt 81.0 kg
[2018-09-01] MEDS ORDERED: ONDANSETRON HCL 4MG/2ML INJ IV STA (17:02)
[2018-09-01] MEDS ORDERED: KETOROLAC 30MG/ML VIAL IV STA (17:02)
[2018-09-01 17:38] LABS: BASOPHILS % 0.9 % (0.0-2.0); EOSINOPHILS % 2.4 % (0.0-5.0); HEMATOCRIT. 33.2 % (36.0-48.0); HEMOGLOBIN. 10.7 g/dL (12.0-16.0); LYMPHOCYTES % 7.1 % (20.0-50.0); MEAN CORPUSCULAR HEMOGLOBIN 28.3 pg (28.0-32.0); MEAN CORPUSCULAR VOLUME 87.2 fL (81.0-99.0); MEAN PLATELET VOLUME 8.9 fl (7.4-10.4); MONOCYTES % 9.3 % (2.0-8.0); NEUTROPHILS % 80.3 % (40.0-76.0); PLATELET 158 x1000/uL (130-400); RED CELL DISTRIBUTION WIDTH 17.3 % (11.6-14.6)
[2018-09-01 17:43] LABS: CHLORIDE 98 mEq/L (98-107)
[2018-09-01 17:44] LABS: PROTHROMBIN TIME 10.1 sec (9.6-11.0)
[2018-09-01] MEDS ORDERED: INSULIN LISPRO 100 UNITS/ML SUBCUT ONE (20:45)
[2018-09-01 21:18] VITALS: BP 150/88
== END 2018-09-01 21:21 | disposition home or self-care (01) ==
LOC: ER 16:05
DX: R10.30 Lower abdominal pain, unspecified (principal); K59.00 Constipation, unspecified; R55 Syncope and collapse; S09.90XA Unspecified injury of head, initial encounter; M54.89 Other dorsalgia; R05 Cough; W18.2XXA Fall in (into) shower or empty bathtub, initial encounter; Y93.89 Activity, other specified; Y92.012 Bathroom of single-family (private) house as the place of occurrence of the external cause; I13.2 Hypertensive heart and chronic kidney disease with heart failure and with stage 5 chronic kidney disease, or end stage renal disease; I50.9 Heart failure, unspecified; E11.65 Type 2 diabetes mellitus with hyperglycemia; E11.22 Type 2 diabetes mellitus with diabetic chronic kidney disease; N18.6 End stage renal disease; Z99.2 Dependence on renal dialysis; Z79.4 Long term (current) use of insulin; Z79.899 Other long term (current) drug therapy
CPT/HCPCS: 36415; 70450; 74176; 80053; 83690; 85025; 85610; 93005; 96372; 96374; 96375; 99284; J1815; J1885; J2405

== ENCOUNTER 2018-12-05 09:07 | Day surgery (SDC) | payer MEDICARE, MEDICAID ==
[~2018-12-05] VITALS: Ht 165.1 cm; Wt 79.4 kg
[~2018-12-05 09:07] MED LIST changes: -CARV3.1242 PO; -ESOM40CA PO; +HYDR-4135 PO; -HYDR100T26 PO; +INSU100I28 SQ; -INSU3INS6 SUBCUT; -ISOS30TA6 PO; +NIFE-1 PO; -NIFE20CA PO
[2018-12-05] MEDS ORDERED: PAPAVERINE HCL 30 MG/ML 2ML IV ONE (10:33)
[2018-12-05] MEDS ORDERED: LIDOCAINE HCL 1% 20ML VIAL (Pyxis) INJ ONE (10:34)
[2018-12-05] MEDS ORDERED: BACITRACIN 15GM TUBE TOP ONE (10:34)
[2018-12-05] MEDS ORDERED: THROMBIN (BOVINE) 5000 UNITS/VIAL TOP ONE (10:34)
[2018-12-05] MEDS ORDERED: HEPARIN SODIUM 1,000 UNIT/1ML VIAL IV ONE (10:35)
[2018-12-05] MEDS ORDERED: BACITRACIN 50,000 UNITS/VIAL ONE (10:35)
[2018-12-05] MEDS ORDERED: BUPIVACAINE HCL/PF 0.5% (5MG/ML) 10ML ONE (10:35)
[2018-12-05 11:16] LABS: HEMATOCRIT. 30.9 % (36.0-48.0); HEMOGLOBIN. 10.2 g/dL (12.0-16.0); MEAN CORPUSCULAR HEMOGLOBIN 28.7 pg (28.0-32.0); MEAN CORPUSCULAR VOLUME 87.2 fL (81.0-99.0); PLATELET 109 x1000/uL (130-400); RED BLOOD CELL COUNT 3.54 mill/uL (4.2-5.4)
[2018-12-05] MEDS ORDERED: SODIUM CHLORIDE 0.9% 500 ML IV ONE (11:30)
[2018-12-05 11:48] LABS: PLATELET ESTIMATE DECREASED
[2018-12-05] MEDS ORDERED: ROPIVACAINE HCL 10MG/ML 20 ML VIAL EPI ONE ×2 (11:53→12:02)
[2018-12-05] MEDS ORDERED: MIDAZOLAM HCL 2 MG/2 ML VIAL ONE ×3 (11:54→12:58)
[2018-12-05] MEDS ORDERED: FENTANYL CITRATE/PF 50MCG/ML 2ML VIAL ONE ×3 (12:15→13:37)
[2018-12-05] MEDS ORDERED: DIPHENHYDRAMINE 50MG/ML VIAL ONE (12:17)
[2018-12-05] MEDS ORDERED: SODIUM CHLORIDE 0.9% 10ML VIAL ONE (12:21)
[2018-12-05] MEDS ORDERED: CEFAZOLIN SODIUM 1000MG/VIAL ONE (12:21)
[2018-12-05] MEDS ORDERED: HEPARIN 5000 UNITS/ML VIAL ONE (12:25)
[2018-12-05] MEDS ORDERED: HYDRALAZINE 20MG/ML VIAL ONE (12:35)
[2018-12-05] MEDS ORDERED: LABETALOL HCL 5MG/ML VIAL 20ML IV ONE (13:42)
[2018-12-05] MEDS ORDERED: ACETAMINOPHEN 325MG TABLET PO PRN (14:15)
[2018-12-05] MEDS ORDERED: ONDANSETRON HCL 4MG/2ML INJ IV PRN (14:15)
[2018-12-05] MEDS ORDERED: HYDROCODONE/ACETAMINOPHEN 5/325MG TABLET PO PRN ×2 (14:15)
[2018-12-05 14:53] LABS: PARTIAL THROMBOPLASTIN TIME 28.5 sec (23.4-31.0); PROTHROMBIN TIME 10.5 sec (9.6-11.0)
[2018-12-05 15:07] VITALS: BP 145/76
== END 2018-12-05 16:30 | disposition home or self-care (01) ==
LOC: OR 09:07
PROVIDERS: ATTEND Surgery Vascular Surgery
DX: I13.2 Hypertensive heart and chronic kidney disease with heart failure and with stage 5 chronic kidney disease, or end stage renal disease (principal); E11.22 Type 2 diabetes mellitus with diabetic chronic kidney disease; N18.6 End stage renal disease; I50.9 Heart failure, unspecified; E11.51 Type 2 diabetes mellitus with diabetic peripheral angiopathy without gangrene; I25.10 Atherosclerotic heart disease of native coronary artery without angina pectoris; Z98.890 Other specified postprocedural states; Z79.899 Other long term (current) drug therapy; Z88.5 Allergy status to narcotic agent; Z79.4 Long term (current) use of insulin; Z83.3 Family history of diabetes mellitus; Z82.49 Family history of ischemic heart disease and other diseases of the circulatory system; Z81.1 Family history of alcohol abuse and dependence; Z84.1 Family history of disorders of kidney and ureter
CPT/HCPCS: 36415; 36830; 80048; 82962; 85025; 85610; 85730; 93005; C1768; J0360; J0690; J1200; J1644; J2250; J2795; J3010; J3490; J2440

== ENCOUNTER 2019-02-13 10:40 | Day surgery (SDC) | payer MEDICARE, MEDICAID ==
[~2019-02-13] VITALS: Ht 167.6 cm; Wt 80.3 kg
[2019-02-13] MEDS ORDERED: SODIUM CHLORIDE 0.9% 500 ML IV ONE (11:00)
[2019-02-13 12:40] LABS: HEMATOCRIT. 34.2 % (36.0-48.0); HEMOGLOBIN. 10.9 g/dL (12.0-16.0); MEAN CORPUSCULAR HEMOGLOBIN 28.2 pg (28.0-32.0); MEAN CORPUSCULAR VOLUME 88.4 fL (81.0-99.0); PLATELET 72 x1000/uL (130-400); RED BLOOD CELL COUNT 3.87 mill/uL (4.2-5.4); RED CELL DISTRIBUTION WIDTH 17.7 % (11.6-14.6)
[2019-02-13 13:13] LABS: PLATELET ESTIMATE DECREASED
[2019-02-13] MEDS ORDERED: BACITRACIN 15GM TUBE TOP ONE (14:29)
[2019-02-13] MEDS ORDERED: BUPIVACAINE HCL/PF 0.5% (5MG/ML) 10ML ONE (14:30)
[2019-02-13] MEDS ORDERED: LIDOCAINE HCL 1% 20ML VIAL (Pyxis) INJ ONE (14:30)
[2019-02-13] MEDS ORDERED: HEPARIN SODIUM 1,000 UNIT/1ML VIAL IV ONE (14:30)
[2019-02-13] MEDS ORDERED: BACITRACIN 50,000 UNITS/VIAL ONE (14:31)
[2019-02-13] MEDS ORDERED: FENTANYL CITRATE/PF 50MCG/ML 2ML VIAL ONE (15:31)
[2019-02-13] MEDS ORDERED: PROPOFOL 200MG/20ML VIAL IV ONE (15:31)
[2019-02-13] MEDS ORDERED: MIDAZOLAM HCL 2 MG/2 ML VIAL ONE (15:31)
[2019-02-13] MEDS ORDERED: ONDANSETRON HCL 4MG/2ML INJ ONE (15:46)
[2019-02-13] MEDS ORDERED: DEXAMETHASONE 4MG/ML 1ML VIAL ONE (15:46)
[2019-02-13] MEDS ORDERED: LIDOCAINE HCL/PF 1% 10 MG/ML 5ML VIAL ONE (15:48)
[2019-02-13] MEDS ORDERED: CEFAZOLIN SODIUM 1000MG/VIAL ONE (15:48)
[2019-02-13] MEDS ORDERED: SODIUM CHLORIDE 0.9% 10ML VIAL ONE (15:48)
[2019-02-13] MEDS ORDERED: LABETALOL 5MG/ML SYR 20 MG/4 ML SYRINGE IV PRN (16:15)
[2019-02-13] MEDS ORDERED: HYDROMORPHONE HCL/PF 2MG/ML CPJ IV PRN (16:15)
[2019-02-13] MEDS ORDERED: MEPERIDINE HCL/PF 25MG/ML CPJ IV PRN (16:15)
[2019-02-13] MEDS ORDERED: ONDANSETRON HCL 4MG/2ML INJ IV PRN (16:15)
[2019-02-13] MEDS ORDERED: HYDROCODONE/ACETAMINOPHEN 5/325MG TABLET PO PRN (17:51)
[2019-02-13] MEDS ORDERED: HYDROCODONE/ACETAMINOPHEN 5/325MG TABLET ONE (17:56)
[2019-02-13 17:58] VITALS: BP 157/56
[2019-02-13] MEDS ORDERED: SODIUM CHLORIDE 0.9% INJ 3ML FLUSH IVF SCH (22:00)
== END 2019-02-13 18:35 | disposition home or self-care (01) ==
LOC: OR 10:40
PROVIDERS: ATTEND Surgery Vascular Surgery
DX: I12.0 Hypertensive chronic kidney disease with stage 5 chronic kidney disease or end stage renal disease (principal); E11.22 Type 2 diabetes mellitus with diabetic chronic kidney disease; E11.51 Type 2 diabetes mellitus with diabetic peripheral angiopathy without gangrene; N18.6 End stage renal disease; Z88.5 Allergy status to narcotic agent; Z79.899 Other long term (current) drug therapy; Z79.4 Long term (current) use of insulin; Z87.891 Personal history of nicotine dependence; Z72.89 Other problems related to lifestyle; Z82.49 Family history of ischemic heart disease and other diseases of the circulatory system; Z98.890 Other specified postprocedural states
CPT/HCPCS: 36415; 36832; 80048; 82962; 85025; 88304; J0690; J1100; J1644; J2250; J2405; J2704; J3010; J3490; J7040

== ENCOUNTER 2019-03-21 18:15 | Inpatient (IN) | payer MEDICARE, MEDICAID ==
[~2019-03-21] VITALS: Ht 167.6 cm; Wt 80.3 kg
[2019-03-21] MEDS ORDERED: ONDANSETRON HCL 4MG/2ML INJ IV NR (23:28)
[2019-03-21] MEDS ORDERED: ACETAMINOPHEN 500MG TABLET PO NR (23:28)
[2019-03-21 23:52] LABS: BASOPHILS % 1.1 % (0.0-2.0); EOSINOPHILS % 8.6 % (0.0-5.0); HEMATOCRIT. 34.4 % (36.0-48.0); HEMOGLOBIN. 11.1 g/dL (12.0-16.0); LYMPHOCYTES % 11.9 % (20.0-50.0); MEAN CORPUSCULAR VOLUME 86.5 fL (81.0-99.0); MEAN PLATELET VOLUME 8.9 fl (7.4-10.4); MONOCYTES % 8.5 % (2.0-8.0); NEUTROPHILS % 69.9 % (40.0-76.0); PLATELET 104 x1000/uL (130-400); RED BLOOD CELL COUNT 3.98 mill/uL (4.2-5.4); RED CELL DISTRIBUTION WIDTH 17.6 % (11.6-14.6)
[2019-03-21 23:56] LABS: CHLORIDE 102 mEq/L (98-107)
[2019-03-22] VITALS (8 sets, daily range): BP systolic 124–173; BP diastolic 63–95
[2019-03-22] LABS: ETHANOL BLOOD < 10 mg/dL
[2019-03-22 00:01] LABS: PROTHROMBIN TIME 10.4 sec (9.6-11.0)
[2019-03-22] MEDS ORDERED: HYDRALAZINE 20MG/ML VIAL IV ONE (00:30)
[2019-03-22] MEDS ORDERED: LORAZEPAM 2MG/ML CPJ IV ONE (00:30)
[2019-03-22 01:11] LABS: CLARITY URINE CLEAR (CLEAR); COLOR URINE YELLOW (YELLOW); KETONES URINE NEGATIVE (NEGATIVE); LEUKOCYTE ESTERASE URINE TRACE (NEGATIVE); NITRITE URINE NEGATIVE (NEGATIVE); OCCULT BLOOD URINE TRACE (NEGATIVE); PH URINE 8.5 (4.5-8.0); PROTEIN URINE 3+ (NEGATIVE); SPECIFIC GRAVITY URINE 1.013 (1.005-1.030); UROBILINOGEN URINE 0.2 E.U./dL (0.2-1.0)
[2019-03-22] MEDS ORDERED: ACETAMINOPHEN 325MG TABLET PO PRN ×2 (05:15→08:15)
[2019-03-22] MEDS ORDERED: GUAIFENESIN 200MG/10ML SUGAR FREE UDC PO PRN (08:15)
[2019-03-22] MEDS ORDERED: IPRATROPIUM/ALBUTEROL 0.5-3(2.5)MG/3ML NEB NEB PRN (08:15)
[2019-03-22] MEDS ORDERED: ONDANSETRON HCL 4MG/2ML INJ IV PRN (08:15)
[2019-03-22] MEDS ORDERED: MAGNESIUM/ALUMINUM HYDROXIDE/SIMETHICONE 30ML UDC PO PRN (08:15)
[2019-03-22] MEDS ORDERED: CLONIDINE 0.1MG TABLET PO PRN (08:15)
[2019-03-22] MEDS ORDERED: NA PHOS,M-B/NA PHOS,DI-BA ENEMA 118ML PR PRN (08:15)
[2019-03-22] MEDS: ASPIRIN 81MG EC TABLET PO SCH ×2 (10:22→10:47)
[2019-03-22] MEDS: ENOXAPARIN 30MG/0.3ML SYR SUBCUT SCH (10:23)
[2019-03-22] MEDS: LORAZEPAM 2MG/ML CPJ IV PRN ×2 (10:23→21:47)
[2019-03-22] MEDS: MORPHINE SULFATE 2 MG/ML CPJ (NOT FOR IM USE) IV PRN (10:48)
[2019-03-22] MEDS: CARVEDILOL 6.25 MG TABLET PO SCH ×2 (13:30→20:55)
[2019-03-22] MEDS: HYDRALAZINE HCL 50MG TABLET PO SCH ×2 (14:00→21:47)
[2019-03-22] MEDS: SACUBITRIL/VALSARTAN 24/26 TAB PO SCH (17:00)
[2019-03-22] MEDS: METOCLOPRAMIDE HCL 10MG/2ML VIAL IV SCH (18:24)
[2019-03-22] MEDS: DOCUSATE SODIUM 100MG CAPSULE PO PRN (18:25)
[2019-03-23] VITALS (12 sets, daily range): BP systolic 98–158; BP diastolic 52–78
[2019-03-23] MEDS: METOCLOPRAMIDE HCL 10MG/2ML VIAL IV SCH ×5 (00:50→22:44)
[2019-03-23] MEDS: MORPHINE SULFATE 2 MG/ML CPJ (NOT FOR IM USE) IV PRN (00:50)
[2019-03-23] MEDS: HYDRALAZINE HCL 50MG TABLET PO SCH ×3 (05:19→21:22)
[2019-03-23 06:12] LABS: BASOPHILS % 1.8 % (0.0-2.0); EOSINOPHILS % 7.5 % (0.0-5.0); HEMATOCRIT. 28.8 % (36.0-48.0); HEMOGLOBIN. 9.3 g/dL (12.0-16.0); LYMPHOCYTES % 12.2 % (20.0-50.0); MEAN CORPUSCULAR HEMOGLOBIN 28.2 pg (28.0-32.0); MEAN CORPUSCULAR VOLUME 86.9 fL (81.0-99.0); MEAN PLATELET VOLUME 10.4 fl (7.4-10.4); MONOCYTES % 13.7 % (2.0-8.0); NEUTROPHILS % 64.8 % (40.0-76.0); PLATELET 86 x1000/uL (130-400); RED BLOOD CELL COUNT 3.31 mill/uL (4.2-5.4); RED CELL DISTRIBUTION WIDTH 17.2 % (11.6-14.6)
[2019-03-23 06:49] LABS: CHLORIDE 108 mEq/L (98-107)
[2019-03-23 07:05] LABS: HDL CHOLESTEROL 70 mg/dL (40-59); T4 FREE 1.01 ng/dL (0.76-1.46)
[2019-03-23 07:07] LABS: LDL CHOLESTEROL 47 mg/dL (5-100)
[2019-03-23] MEDS: LORAZEPAM 2MG/ML CPJ IV PRN ×2 (08:54→22:41)
[2019-03-23] MEDS: SACUBITRIL/VALSARTAN 24/26 TAB PO SCH ×2 (09:00→17:56)
[2019-03-23] MEDS: ENOXAPARIN 30MG/0.3ML SYR SUBCUT SCH (09:43)
[2019-03-23] MEDS: DOCUSATE SODIUM 100MG CAPSULE PO PRN (09:44)
[2019-03-23] MEDS: CARVEDILOL 6.25 MG TABLET PO SCH ×2 (09:44→21:21)
[2019-03-23] MEDS: ASPIRIN 81MG EC TABLET PO SCH (09:44)
[2019-03-23] MEDS: ISOSORBIDE MONONITRATE 30MG TABLET SR 24HR PO SCH (09:49)
[2019-03-23] MEDS ORDERED: PIPERACILLIN/TAZOBACTAM 3.375 G in DEXT 5% WATER 100 ML IV SCH (22:00)
[2019-03-23] MEDS: DIPHENHYDRAMINE 50MG/ML VIAL IV PRN (22:41)
[2019-03-23] MEDS: PIPERACILLIN/TAZOBACTAM 2.25 G in DEXTROSE 5% WATER 50 ML IV SCH (23:03)
[2019-03-24] VITALS (12 sets, daily range): BP systolic 105–157; BP diastolic 48–76
[2019-03-24] MEDS: PIPERACILLIN/TAZOBACTAM 2.25 G in DEXTROSE 5% WATER 50 ML IV SCH ×3 (05:17→21:29)
[2019-03-24] MEDS: HYDRALAZINE HCL 50MG TABLET PO SCH (05:21)
[2019-03-24] MEDS: METOCLOPRAMIDE HCL 10MG/2ML VIAL IV SCH ×4 (05:23→23:07)
[2019-03-24] MEDS: DIPHENHYDRAMINE 50MG/ML VIAL IV PRN ×2 (06:08→13:38)
[2019-03-24 06:43] LABS: HEMATOCRIT. 32.2 % (36.0-48.0); HEMOGLOBIN. 10.3 g/dL (12.0-16.0); MEAN PLATELET VOLUME 9.9 fl (7.4-10.4); PLATELET 80 x1000/uL (130-400); RED CELL DISTRIBUTION WIDTH 17.4 % (11.6-14.6)
[2019-03-24] MEDS: CARVEDILOL 6.25 MG TABLET PO SCH ×2 (08:28→20:32)
[2019-03-24] MEDS: ISOSORBIDE MONONITRATE 30MG TABLET SR 24HR PO SCH (08:30)
[2019-03-24] MEDS: SACUBITRIL/VALSARTAN 24/26 TAB PO SCH ×2 (08:30→17:29)
[2019-03-24] MEDS: AMLODIPINE 2.5MG TABLET PO SCH (08:31)
[2019-03-24] MEDS: LORAZEPAM 2MG/ML CPJ IV PRN ×2 (09:09→19:41)
[2019-03-24] MEDS: HYDRALAZINE HCL 25MG TABLET PO SCH ×2 (13:14→21:28)
[2019-03-24 13:38] LABS: PLATELET ESTIMATE DECREASED
[2019-03-25] VITALS (8 sets, daily range): BP systolic 101–129; BP diastolic 59–69
[2019-03-25] MEDS: MORPHINE SULFATE 2 MG/ML CPJ (NOT FOR IM USE) IV PRN (01:08)
[2019-03-25] MEDS: DIPHENHYDRAMINE 50MG/ML VIAL IV PRN ×2 (01:09→04:28)
[2019-03-25] MEDS: PIPERACILLIN/TAZOBACTAM 2.25 G in DEXTROSE 5% WATER 50 ML IV SCH ×2 (05:49→13:25)
[2019-03-25] MEDS: METOCLOPRAMIDE HCL 10MG/2ML VIAL IV SCH ×2 (05:49→13:24)
[2019-03-25] MEDS: HYDRALAZINE HCL 25MG TABLET PO SCH ×2 (05:50→13:29)
[2019-03-25 06:00] LABS: BASOPHILS % 1.3 % (0.0-2.0); EOSINOPHILS % 2.1 % (0.0-5.0); HEMATOCRIT. 34.2 % (36.0-48.0); HEMOGLOBIN. 11.1 g/dL (12.0-16.0); LYMPHOCYTES % 11.8 % (20.0-50.0); MEAN CORPUSCULAR HEMOGLOBIN 28.3 pg (28.0-32.0); MEAN CORPUSCULAR VOLUME 87.5 fL (81.0-99.0); MEAN PLATELET VOLUME 10.2 fl (7.4-10.4); MONOCYTES % 14.4 % (2.0-8.0); NEUTROPHILS % 70.4 % (40.0-76.0); PLATELET 91 x1000/uL (130-400); RED BLOOD CELL COUNT 3.91 mill/uL (4.2-5.4)
[2019-03-25] MEDS: ASPIRIN 81MG EC TABLET PO SCH (09:03)
[2019-03-25] MEDS: ISOSORBIDE MONONITRATE 30MG TABLET SR 24HR PO SCH (09:04)
[2019-03-25] MEDS: AMLODIPINE 2.5MG TABLET PO SCH (09:04)
[2019-03-25] MEDS: LORAZEPAM 2MG/ML CPJ IV PRN (09:05)
[2019-03-25] MEDS: CARVEDILOL 6.25 MG TABLET PO SCH (09:42)
[2019-03-25] MEDS: SACUBITRIL/VALSARTAN 24/26 TAB PO SCH ×2 (09:46→17:21)
== END 2019-03-25 17:55 | disposition home or self-care (01) | DRG 871 ==
LOC: ER 20:13 → 5EST 03-22 05:21 → ENRESERV 03-22 07:04
PROVIDERS: ADMIT Internal Medicine; ATTEND Internal Medicine
PROC: 5A1D70Z Performance of Urinary Filtration, Intermittent, Less than 6 Hours Per Day (ICD-10-PCS; principal; 2019-03-22)
PROC: 5A1D70Z Performance of Urinary Filtration, Intermittent, Less than 6 Hours Per Day (ICD-10-PCS; 2019-03-23)
PROC: 5A1D70Z Performance of Urinary Filtration, Intermittent, Less than 6 Hours Per Day (ICD-10-PCS; 2019-03-24)
DX: A41.9 Sepsis, unspecified organism (principal); N18.6 End stage renal disease; J96.00 Acute respiratory failure, unspecified whether with hypoxia or hypercapnia; I50.23 Acute on chronic systolic (congestive) heart failure; I13.2 Hypertensive heart and chronic kidney disease with heart failure and with stage 5 chronic kidney disease, or end stage renal disease; I31.3 Pericardial effusion (noninflammatory); I42.9 Cardiomyopathy, unspecified; E87.2 Acidosis; D63.1 Anemia in chronic kidney disease; D69.6 Thrombocytopenia, unspecified; E11.319 Type 2 diabetes mellitus with unspecified diabetic retinopathy without macular edema; E11.43 Type 2 diabetes mellitus with diabetic autonomic (poly)neuropathy; E11.40 Type 2 diabetes mellitus with diabetic neuropathy, unspecified; I08.1 Rheumatic disorders of both mitral and tricuspid valves; K31.84 Gastroparesis; E11.22 Type 2 diabetes mellitus with diabetic chronic kidney disease; I25.10 Atherosclerotic heart disease of native coronary artery without angina pectoris; K59.00 Constipation, unspecified; Z79.899 Other long term (current) drug therapy; Z99.2 Dependence on renal dialysis; Z79.4 Long term (current) use of insulin; Z82.49 Family history of ischemic heart disease and other diseases of the circulatory system; Z88.8 Allergy status to other drugs, medicaments and biological substances
CPT/HCPCS: 36415; 71045; 80048; 80061; 80320; 81003; 84439; 84443; 84484; 93005; 93306; 96374; 99285; J0360; J1200; J1650; J2060; J2270; J2405; J2543; J2765; J7060; G0480

== ENCOUNTER 2019-07-07 11:35 | Emergency (ER) | payer MEDICARE, MEDICAID ==
[~2019-07-07] VITALS: Ht 165.1 cm; Wt 81.0 kg
[~2019-07-07 11:35] MED LIST changes: -NIFE-1 PO; +NIFE-53 PO
[2019-07-07] MEDS ORDERED: FLUORESCEIN SODIUM 1MG/STRIP BOTHEYE ONE (12:15)
[2019-07-07] MEDS ORDERED: ACETAMINOPHEN 325MG TABLET PO ONE (12:15)
[2019-07-07] MEDS ORDERED: TETRACAINE 0.5% OPHTH DROPS 4ML BOTHEYE ONE (12:45)
[2019-07-07] MEDS ORDERED: FLUORESCEIN SODIUM 1MG/STRIP RIGHTEYE ONE (13:00)
[2019-07-07 13:42] VITALS: BP 156/84
== END 2019-07-07 13:43 | disposition home or self-care (01) ==
LOC: ER 11:35
DX: H57.12 Ocular pain, left eye (principal); H10.12 Acute atopic conjunctivitis, left eye; E11.22 Type 2 diabetes mellitus with diabetic chronic kidney disease; N18.6 End stage renal disease; Z99.2 Dependence on renal dialysis; I13.0 Hypertensive heart and chronic kidney disease with heart failure and stage 1 through stage 4 chronic kidney disease, or unspecified chronic kidney disease; Z79.4 Long term (current) use of insulin; Z88.5 Allergy status to narcotic agent; Z79.899 Other long term (current) drug therapy; I50.9 Heart failure, unspecified
CPT/HCPCS: 99284

== ENCOUNTER 2019-12-09 05:35 | Inpatient (IN) | payer MEDICARE, MEDICAID ==
[~2019-12-09] VITALS: Ht 165.1 cm; Wt 75.3 kg
[2019-12-09] MEDS ORDERED: LORAZEPAM 1MG TABLET PO ONE (06:30)
[2019-12-09] MEDS ORDERED: HYDRALAZINE 20MG/ML VIAL IV ONE (06:30)
[2019-12-09 06:37] LABS: BASOPHILS % 1.3 % (0.0-2.0); EOSINOPHILS % 3.9 % (0.0-5.0); HEMATOCRIT. 34.6 % (36.0-48.0); HEMOGLOBIN. 11.4 g/dL (12.0-16.0); LYMPHOCYTES % 15.9 % (20.0-50.0); MEAN CORPUSCULAR HEMOGLOBIN 28.6 pg (28.0-32.0); MEAN CORPUSCULAR VOLUME 86.9 fL (81.0-99.0); MEAN PLATELET VOLUME 9.3 fl (7.4-10.4); MONOCYTES % 9.3 % (2.0-8.0); NEUTROPHILS % 69.6 % (40.0-76.0); PLATELET 90 x1000/uL (130-400); RED BLOOD CELL COUNT 3.98 mill/uL (4.2-5.4); RED CELL DISTRIBUTION WIDTH 15.3 % (11.6-14.6)
[2019-12-09 06:52] LABS: CHLORIDE 99 mEq/L (98-107)
[2019-12-09] MEDS ORDERED: HYDROCODONE/ACETAMINOPHEN 10/325MG TABLET PO PRN (10:00)
[2019-12-09] MEDS ORDERED: MORPHINE SULFATE 2 MG/ML CPJ (NOT FOR IM USE) IV PRN (10:00)
[2019-12-09] MEDS ORDERED: DOCUSATE SODIUM 100MG CAPSULE PO PRN (10:00)
[2019-12-09] MEDS ORDERED: GUAIFENESIN 200MG/10ML SUGAR FREE UDC PO PRN (10:00)
[2019-12-09] MEDS ORDERED: DEXTROSE 50% WATER 50ML SYRINGE IV PRN (10:00)
[2019-12-09] MEDS ORDERED: HYDRALAZINE 20MG/ML VIAL IV PRN (10:00)
[2019-12-09] MEDS ORDERED: CLONIDINE 0.1MG TABLET PO PRN (10:00)
[2019-12-09] MEDS ORDERED: MAGNESIUM/ALUMINUM HYDROXIDE/SIMETHICONE 30ML UDC PO PRN (10:00)
[2019-12-09] MEDS ORDERED: ONDANSETRON HCL 4MG/2ML INJ IV PRN (10:00)
[2019-12-09] MEDS ORDERED: DIPHENHYDRAMINE 50MG/ML VIAL IV PRN (10:00)
[2019-12-09] MEDS ORDERED: IPRATROPIUM/ALBUTEROL 0.5-3(2.5)MG/3ML NEB NEB PRN (10:00)
[2019-12-09] MEDS: BLOOD SUGAR DIAGNOSTIC STRIP TEST SCH ×3 (13:03→21:38)
[2019-12-09] MEDS: SODIUM CHLORIDE 0.9% INJ 3ML FLUSH IVF SCH ×2 (13:04→21:38)
[2019-12-09] MEDS: INSULIN LISPRO 100 UNITS/ML SUBCUT SCH ×3 (13:04→21:00)
[2019-12-09 14:21] LABS: CREATINE KINASE MB FRACTION 5.3 ng/mL (0.5-3.6)
[2019-12-09 20:40] VITALS: BP 169/80
[2019-12-09] MEDS: AMLODIPINE 2.5MG TABLET PO SCH (21:37)
[2019-12-09] MEDS: ACETAMINOPHEN 325MG TABLET PO PRN (21:40)
[2019-12-09] MEDS ORDERED: LORA-250 PO (22:48)
[2019-12-10 00:01] LABS: CREATINE KINASE MB FRACTION 4.3 ng/mL (0.5-3.6)
[2019-12-10 00:52] VITALS: BP 123/63
[2019-12-10 04:00] VITALS: BP 107/56
[2019-12-10] MEDS: SODIUM CHLORIDE 0.9% INJ 3ML FLUSH IVF SCH ×3 (06:16→21:18)
[2019-12-10] MEDS: BLOOD SUGAR DIAGNOSTIC STRIP TEST SCH ×4 (06:17→21:18)
[2019-12-10 06:39] LABS: BASOPHILS % 1.5 % (0.0-2.0); EOSINOPHILS % 5.3 % (0.0-5.0); HEMATOCRIT. 32.2 % (36.0-48.0); HEMOGLOBIN. 10.6 g/dL (12.0-16.0); LYMPHOCYTES % 22.5 % (20.0-50.0); MEAN CORPUSCULAR HEMOGLOBIN 28.9 pg (28.0-32.0); MEAN CORPUSCULAR VOLUME 87.7 fL (81.0-99.0); MEAN PLATELET VOLUME 9.2 fl (7.4-10.4); MONOCYTES % 9.9 % (2.0-8.0); NEUTROPHILS % 60.8 % (40.0-76.0); PLATELET 84 x1000/uL (130-400); RED BLOOD CELL COUNT 3.67 mill/uL (4.2-5.4); RED CELL DISTRIBUTION WIDTH 15.1 % (11.6-14.6)
[2019-12-10 06:49] LABS: CHLORIDE 99 mEq/L (98-107)
[2019-12-10 06:58] LABS: T4 FREE 0.91 ng/dL (0.76-1.46)
[2019-12-10 07:01] LABS: HDL CHOLESTEROL 81 mg/dL (40-59)
[2019-12-10 07:03] LABS: LDL CHOLESTEROL 65 mg/dL (5-100)
[2019-12-10] MEDS: INSULIN LISPRO 100 UNITS/ML SUBCUT SCH ×4 (07:43→21:00)
[2019-12-10 08:00] VITALS: BP 162/78
[2019-12-10] MEDS: ACETAMINOPHEN 325MG TABLET PO PRN (08:45)
[2019-12-10] MEDS: AMLODIPINE 2.5MG TABLET PO SCH ×3 (08:46→21:18)
[2019-12-10] MEDS ORDERED: ENOXAPARIN 30MG/0.3ML SYR SUBCUT SCH (09:00)
[2019-12-10 12:00] VITALS: BP 136/68
[2019-12-10] MEDS ORDERED: LORAZEPAM 2MG/ML CPJ IV SCH (14:45)
[2019-12-10 16:00] VITALS: BP 157/76
[2019-12-10 20:23] VITALS: BP 133/53
[2019-12-10] MEDS: LORAZEPAM 2MG/ML CPJ IV PRN (22:10)
[2019-12-11] VITALS: BP 158/75
[2019-12-11 04:00] VITALS: BP 150/69
[2019-12-11] MEDS: SODIUM CHLORIDE 0.9% INJ 3ML FLUSH IVF SCH ×3 (06:22→21:15)
[2019-12-11] MEDS: BLOOD SUGAR DIAGNOSTIC STRIP TEST SCH ×4 (06:22→21:06)
[2019-12-11] MEDS: INSULIN LISPRO 100 UNITS/ML SUBCUT SCH ×4 (07:19→21:00)
[2019-12-11 07:51] LABS: BASOPHILS % 1.8 % (0.0-2.0); EOSINOPHILS % 5.7 % (0.0-5.0); HEMOGLOBIN. 11.1 g/dL (12.0-16.0); LYMPHOCYTES % 27.4 % (20.0-50.0); MEAN CORPUSCULAR HEMOGLOBIN 28.6 pg (28.0-32.0); MEAN CORPUSCULAR VOLUME 87.8 fL (81.0-99.0); MEAN PLATELET VOLUME 9.6 fl (7.4-10.4); MONOCYTES % 13.1 % (2.0-8.0); PLATELET 87 x1000/uL (130-400); RED BLOOD CELL COUNT 3.87 mill/uL (4.2-5.4); RED CELL DISTRIBUTION WIDTH 14.7 % (11.6-14.6)
[2019-12-11 08:00] VITALS: BP 159/59
[2019-12-11] MEDS: ACETAMINOPHEN 325MG TABLET PO PRN ×2 (09:06→21:05)
[2019-12-11] MEDS: AMLODIPINE 2.5MG TABLET PO SCH ×2 (09:06→21:05)
[2019-12-11] MEDS ORDERED: LORAZEPAM 2MG/ML CPJ IV NR (10:30)
[2019-12-11] MEDS: LORAZEPAM 2MG/ML CPJ IV PRN ×2 (10:34→21:14)
[2019-12-11 12:00] VITALS: BP 169/79
[2019-12-11 16:00] VITALS: BP 149/77
[2019-12-11 20:55] VITALS: BP 134/65
[2019-12-12 00:43] VITALS: BP 107/62
[2019-12-12 04:00] VITALS: BP 158/71
[2019-12-12 06:10] LABS: BASOPHILS % 1.6 % (0.0-2.0); EOSINOPHILS % 4.9 % (0.0-5.0); HEMATOCRIT. 37.1 % (36.0-48.0); HEMOGLOBIN. 12.1 g/dL (12.0-16.0); LYMPHOCYTES % 26.4 % (20.0-50.0); MEAN CORPUSCULAR HEMOGLOBIN 28.8 pg (28.0-32.0); MEAN PLATELET VOLUME 9.5 fl (7.4-10.4); MONOCYTES % 14.6 % (2.0-8.0); NEUTROPHILS % 52.5 % (40.0-76.0); PLATELET 92 x1000/uL (130-400); RED BLOOD CELL COUNT 4.21 mill/uL (4.2-5.4); RED CELL DISTRIBUTION WIDTH 14.8 % (11.6-14.6)
[2019-12-12] MEDS: SODIUM CHLORIDE 0.9% INJ 3ML FLUSH IVF SCH (06:55)
[2019-12-12] MEDS: INSULIN LISPRO 100 UNITS/ML SUBCUT SCH (07:50)
[2019-12-12 08:00] VITALS: BP 173/77
[2019-12-12] MEDS: BLOOD SUGAR DIAGNOSTIC STRIP TEST SCH (08:07)
[2019-12-12] MEDS: AMLODIPINE 2.5MG TABLET PO SCH (08:24)
== END 2019-12-12 10:33 | disposition left against medical advice (07) | DRG 189 ==
LOC: ER 05:35 → 6WST 09:58 → ENRESERV 20:02
PROVIDERS: ADMIT Internal Medicine; ATTEND Internal Medicine
PROC: 5A1D70Z Performance of Urinary Filtration, Intermittent, Less than 6 Hours Per Day (ICD-10-PCS; principal; 2019-12-09)
PROC: 5A1D70Z Performance of Urinary Filtration, Intermittent, Less than 6 Hours Per Day (ICD-10-PCS; 2019-12-11)
DX: J96.01 Acute respiratory failure with hypoxia (principal); N18.6 End stage renal disease; I13.2 Hypertensive heart and chronic kidney disease with heart failure and with stage 5 chronic kidney disease, or end stage renal disease; D61.818 Other pancytopenia; I50.22 Chronic systolic (congestive) heart failure; E87.1 Hypo-osmolality and hyponatremia; I42.9 Cardiomyopathy, unspecified; E11.22 Type 2 diabetes mellitus with diabetic chronic kidney disease; E11.319 Type 2 diabetes mellitus with unspecified diabetic retinopathy without macular edema; I27.21 Secondary pulmonary arterial hypertension; D63.8 Anemia in other chronic diseases classified elsewhere; E87.5 Hyperkalemia; F41.9 Anxiety disorder, unspecified; H54.8 Legal blindness, as defined in USA; I25.10 Atherosclerotic heart disease of native coronary artery without angina pectoris; E78.5 Hyperlipidemia, unspecified; Z53.29 Procedure and treatment not carried out because of patient's decision for other reasons; I36.1 Nonrheumatic tricuspid (valve) insufficiency; Z99.2 Dependence on renal dialysis; Z87.891 Personal history of nicotine dependence; Z88.5 Allergy status to narcotic agent; Z82.49 Family history of ischemic heart disease and other diseases of the circulatory system
CPT/HCPCS: 36415; 71045; 78582; 80048; 80053; 80061; 82550; 82553; 82962; 83735; 83880; 84439; 84443; 84484; 85025; 93005; 93306; 93970; 96374; 99291; A9558; J0360; J1815; J2060; J2270

== ENCOUNTER 2020-08-21 13:03 | Emergency (ER) | payer MEDICARE, MEDICAID ==
[~2020-08-21] VITALS: Ht 167.6 cm; Wt 76.0 kg
[~2020-08-21 13:03] MED LIST changes: +LORA-250 PO
[2020-08-21 13:13] VITALS: BP 180/100
[2020-08-21] MEDS ORDERED: CALA177S9 TP (13:56)
[2020-08-21] MEDS ORDERED: HYDR30CR80 TP (13:56)
[2020-08-21] MEDS ORDERED: CALAMINE LOTION 120ML TOP ONE (14:00)
[2020-08-21] MEDS ORDERED: ZINC OXIDE 20% OINT 30GM TOP PRN (14:00)
== END 2020-08-21 14:19 | disposition home or self-care (01) ==
LOC: ER 13:03
DX: K64.9 Unspecified hemorrhoids (principal); I11.0 Hypertensive heart disease with heart failure; I50.9 Heart failure, unspecified; E11.9 Type 2 diabetes mellitus without complications; Z88.5 Allergy status to narcotic agent; Z79.4 Long term (current) use of insulin; Z79.899 Other long term (current) drug therapy
CPT/HCPCS: 99283

== ENCOUNTER 2021-01-19 14:28 | Emergency (ER) | payer MEDICARE, MEDICAID ==
[~2021-01-19] VITALS: Ht 165.1 cm; Wt 76.8 kg
[~2021-01-19 14:28] MED LIST changes: +CALA177S9 TP; +HYDR30CR80 TP
[2021-01-19 14:32] VITALS: BP 157/76
== END 2021-01-19 19:30 | disposition left against medical advice (07) ==
LOC: ER 14:28
DX: M25.552 Pain in left hip (principal); Z13.9 Encounter for screening, unspecified
CPT/HCPCS: 99281

== ENCOUNTER 2021-02-18 17:14 | Inpatient (IN) | payer MEDICARE, MEDICAID ==
[~2021-02-18] VITALS: Ht 165.1 cm; Wt 86.2 kg
[2021-02-18 18:43] LABS: HEMATOCRIT. 42.3 % (36.0-48.0); HEMOGLOBIN. 13.5 g/dL (12.0-16.0); MEAN CORPUSCULAR HEMOGLOBIN 28.4 pg (28.0-32.0); MEAN CORPUSCULAR VOLUME 88.6 fL (81.0-99.0); MEAN PLATELET VOLUME 8.9 fl (7.4-10.4); PLATELET 97 x1000/uL (130-400); RED BLOOD CELL COUNT 4.77 mill/uL (4.2-5.4); RED CELL DISTRIBUTION WIDTH 17.8 % (11.6-14.6)
[2021-02-18 18:49] LABS: CHLORIDE 96 mEq/L (98-107)
[2021-02-18 18:52] LABS: INR 1.2
[2021-02-18 18:59] LABS: PLATELET ESTIMATE DECREASED
[2021-02-18] MEDS ORDERED: DEXTROSE 50% WATER 50ML SYRINGE IV ONE (19:45)
[2021-02-18] MEDS ORDERED: INSULIN REGULAR (HUMULIN R) 300UNITS/3ML VIAL IV ONE (19:45)
[2021-02-18] MEDS ORDERED: NA PHOS,M-B/NA PHOS,DI-BA ENEMA 118ML PR PRN (22:30)
[2021-02-18] MEDS ORDERED: ACETAMINOPHEN 325MG TABLET PO PRN (22:30)
[2021-02-18] MEDS ORDERED: GUAIFENESIN 200MG/10ML SUGAR FREE UDC PO PRN (22:30)
[2021-02-18] MEDS ORDERED: DIPHENHYDRAMINE 50MG/ML VIAL IV PRN (22:30)
[2021-02-18] MEDS ORDERED: DOCUSATE SODIUM 100MG CAPSULE PO PRN (22:30)
[2021-02-18] MEDS ORDERED: IPRATROPIUM/ALBUTEROL 0.5-3(2.5)MG/3ML NEB NEB PRN (22:30)
[2021-02-18] MEDS ORDERED: ENOXAPARIN 40MG/0.4ML SYR SUBCUT SCH (22:30)
[2021-02-18] MEDS ORDERED: MAGNESIUM/ALUMINUM HYDROXIDE/SIMETHICONE 30ML UDC PO PRN (22:30)
[2021-02-18] MEDS ORDERED: CLONIDINE 0.1MG TABLET PO PRN (22:30)
[2021-02-18] MEDS ORDERED: LORAZEPAM 2MG/ML CPJ IV PRN (22:30)
[2021-02-18] MEDS: ENOXAPARIN 30MG/0.3ML SYR SUBCUT SCH (23:00)
[2021-02-19] MEDS: ONDANSETRON HCL 4MG/2ML INJ IV PRN ×2 (00:43→07:07)
[2021-02-19] MEDS: MORPHINE SULFATE 2 MG/ML CPJ (NOT FOR IM USE) IV PRN ×2 (00:44→07:12)
[2021-02-19 05:41] LABS: CHLORIDE 95 mEq/L (98-107); HEMATOCRIT. 42.9 % (36.0-48.0); HEMOGLOBIN. 13.8 g/dL (12.0-16.0); MEAN CORPUSCULAR HEMOGLOBIN 28.7 pg (28.0-32.0); MEAN CORPUSCULAR VOLUME 89.1 fL (81.0-99.0); MEAN PLATELET VOLUME 9.2 fl (7.4-10.4); PLATELET 94 x1000/uL (130-400); RED BLOOD CELL COUNT 4.82 mill/uL (4.2-5.4); RED CELL DISTRIBUTION WIDTH 18.1 % (11.6-14.6)
[2021-02-19 05:51] LABS: LDL CHOLESTEROL 46 mg/dL (5-100)
[2021-02-19 05:53] LABS: HDL CHOLESTEROL 58 mg/dL (40-59); T4 FREE 0.85 ng/dL (0.76-1.46)
[2021-02-19] MEDS ORDERED: SODIUM POLYSTYRENE SULFONATE 15 G/60 ML BOT PO SCH (07:15)
[2021-02-19] MEDS ORDERED: SODIUM POLYSTYRENE SULFONATE 15 G/60 ML BOT PO NR (12:00)
[2021-02-19] MEDS: ASPIRIN 81MG EC TABLET PO SCH (12:40)
[2021-02-19] MEDS ORDERED: DEXTROSE 50% WATER 50ML SYRINGE IV NR (13:45)
[2021-02-19 14:14] LABS: PLATELET ESTIMATE SLIGHTLY DECREASED
[2021-02-19] MEDS ORDERED: INSULIN REGULAR (HUMULIN R) 300UNITS/3ML VIAL IV NR (14:30)
[2021-02-19] MEDS ORDERED: CALCIUM CHLORIDE 1,000 MG in DEXT 5% WATER 90 ML IV NR (14:30)
[2021-02-19 16:00] VITALS: BP 156/76
[2021-02-19 17:04] VITALS: BP 156/76
[2021-02-19] MEDS ORDERED: SEVE800T8 MT (17:15)
[2021-02-19] MEDS ORDERED: GABA-529 PO (17:15)
[2021-02-19] MEDS ORDERED: PYRI50CA PO (17:15)
[2021-02-19 17:43] LABS: HEPATITIS B SURFACE ANTIGEN NEGATIVE
[2021-02-19 20:00] VITALS: BP 165/89
[2021-02-19] MEDS: ATORVASTATIN CALCIUM 40MG TABLET PO SCH (21:23)
[2021-02-19] MEDS: ENOXAPARIN 30MG/0.3ML SYR SUBCUT SCH (21:23)
[2021-02-20] VITALS: BP 112/53
[2021-02-20 04:00] VITALS: BP 103/67
[2021-02-20 08:00] VITALS: BP 104/49
[2021-02-20] MEDS: ASPIRIN 81MG EC TABLET PO SCH (10:06)
[2021-02-20 12:00] VITALS: BP 136/61
[2021-02-20 16:00] VITALS: BP 104/52
[2021-02-20] MEDS ORDERED: NALOXONE HCL 0.4MG/ML VIAL IV PRN (16:30)
[2021-02-20 20:00] VITALS: BP 124/54
[2021-02-20] MEDS: ENOXAPARIN 30MG/0.3ML SYR SUBCUT SCH (21:18)
[2021-02-20] MEDS: ATORVASTATIN CALCIUM 40MG TABLET PO SCH (21:18)
[2021-02-21] VITALS: BP 96/47
[2021-02-21 04:00] VITALS: BP 103/45
[2021-02-21 08:00] VITALS: BP 117/65
[2021-02-21 09:15] LABS: HEMATOCRIT 41.1 % (36.0-48.0); HEMOGLOBIN 13.1 g/dL (12.0-16.0); MEAN CORPUSCULAR HEMOGLOBIN 28.6 pg (28.0-32.0); MEAN CORPUSCULAR VOLUME 89.9 fL (81.0-99.0); PLATELET 96 x1000/uL (130-400); RED BLOOD CELL COUNT 4.57 mill/uL (4.2-5.4); RED CELL DISTRIBUTION WIDTH 18.8 % (11.6-14.6)
[2021-02-21] MEDS: ASPIRIN 81MG EC TABLET PO SCH (09:55)
[2021-02-21 12:00] VITALS: BP 122/65
[2021-02-21 12:37] VITALS: BP 122/65
== END 2021-02-21 13:30 | disposition home or self-care (01) | DRG 444 ==
LOC: ER 17:14 → MICUSO 20:18 → 7EST 02-19 07:15
PROVIDERS: ADMIT Internal Medicine; ATTEND Internal Medicine
PROC: 5A1D70Z Performance of Urinary Filtration, Intermittent, Less than 6 Hours Per Day (ICD-10-PCS; principal; 2021-02-19)
DX: K80.20 Calculus of gallbladder without cholecystitis without obstruction (principal); N18.6 End stage renal disease; I13.2 Hypertensive heart and chronic kidney disease with heart failure and with stage 5 chronic kidney disease, or end stage renal disease; G93.40 Encephalopathy, unspecified; E44.1 Mild protein-calorie malnutrition; R65.10 Systemic inflammatory response syndrome (SIRS) of non-infectious origin without acute organ dysfunction; K64.9 Unspecified hemorrhoids; I25.10 Atherosclerotic heart disease of native coronary artery without angina pectoris; E11.51 Type 2 diabetes mellitus with diabetic peripheral angiopathy without gangrene; E11.42 Type 2 diabetes mellitus with diabetic polyneuropathy; H54.8 Legal blindness, as defined in USA; D64.9 Anemia, unspecified; E78.5 Hyperlipidemia, unspecified; R79.89 Other specified abnormal findings of blood chemistry; E87.5 Hyperkalemia; D72.819 Decreased white blood cell count, unspecified; D69.6 Thrombocytopenia, unspecified; I50.9 Heart failure, unspecified; E11.22 Type 2 diabetes mellitus with diabetic chronic kidney disease; Z99.2 Dependence on renal dialysis; Z88.5 Allergy status to narcotic agent; Z79.899 Other long term (current) drug therapy; Z79.4 Long term (current) use of insulin; Z68.31 Body mass index [BMI] 31.0-31.9, adult
CPT/HCPCS: 36415; 74176; 76700; 80048; 80053; 80061; 82962; 84132; 84439; 84443; 84484; 85025; 85027; 86705; 86709; 86803; 87340; 93005; 93306; 99285; J1200; J1650; J1815; J2270; J2405; J3490; J7060

== ENCOUNTER 2021-02-24 11:08 | Emergency (ER) | payer MEDICARE, MEDICAID ==
[~2021-02-24] VITALS: Ht 165.1 cm; Wt 81.0 kg
[~2021-02-24 11:08] MED LIST changes: +GABA-529 PO; +PYRI50CA PO; +SEVE800T8 MT
[2021-02-24] MEDS ORDERED: ONDANSETRON HCL 4MG/2ML INJ IV STA (12:57)
[2021-02-24] MEDS ORDERED: MORPHINE SULFATE 4 MG/ML CPJ (NOT FOR IM USE) IV STA (12:57)
[2021-02-24] MEDS ORDERED: SODIUM CHLORIDE 0.9% 1,000 ML IV ONE (13:00)
[2021-02-24 13:35] LABS: CHLORIDE 96 mEq/L (98-107)
[2021-02-24 13:41] LABS: BETA HYDROXYBUTYRATE 0.1 mMol/L (0.0-0.3)
[2021-02-24 13:41] LABS: BASOPHILS % 0.5 % (0.0-2.0); EOSINOPHILS % 2.7 % (0.0-5.0); HEMATOCRIT. 40.8 % (36.0-48.0); HEMOGLOBIN. 12.6 g/dL (12.0-16.0); LYMPHOCYTES % 27.7 % (20.0-50.0); MEAN CORPUSCULAR VOLUME 90.5 fL (81.0-99.0); MEAN PLATELET VOLUME 9.6 fl (7.4-10.4); MONOCYTES % 7.9 % (2.0-8.0); NEUTROPHILS % 61.2 % (40.0-76.0); PLATELET 103 x1000/uL (130-400); RED BLOOD CELL COUNT 4.51 mill/uL (4.2-5.4); RED CELL DISTRIBUTION WIDTH 18.1 % (11.6-14.6)
[2021-02-24 15:29] VITALS: BP 154/84
[2021-02-25] MEDS ORDERED: ATOR40TA70 PO (01:38)
== END 2021-02-24 17:34 | disposition left against medical advice (07) ==
LOC: ER 11:08 → EDBEDREQTM 16:10 → EDBEDREQ 16:10 → CANBEDREQ 17:33 → ER 17:34
DX: R18.8 Other ascites (principal); R42 Dizziness and giddiness; E87.79 Other fluid overload; R11.2 Nausea with vomiting, unspecified; R94.31 Abnormal electrocardiogram [ECG] [EKG]; I13.2 Hypertensive heart and chronic kidney disease with heart failure and with stage 5 chronic kidney disease, or end stage renal disease; I50.9 Heart failure, unspecified; E11.22 Type 2 diabetes mellitus with diabetic chronic kidney disease; D64.9 Anemia, unspecified; H54.7 Unspecified visual loss; N18.6 End stage renal disease; I25.10 Atherosclerotic heart disease of native coronary artery without angina pectoris; Z99.2 Dependence on renal dialysis; Z79.84 Long term (current) use of oral hypoglycemic drugs; Z79.4 Long term (current) use of insulin
CPT/HCPCS: 36415; 71045; 74176; 80053; 82010; 82962; 83690; 83880; 84484; 85025; 93005; 93970; 93971; 99285; J7030; J2270; J2405

== ENCOUNTER 2021-02-24 19:47 | Inpatient (IN) | payer MEDICARE, MEDICAID ==
[~2021-02-24] VITALS: Ht 165.1 cm; Wt 83.5 kg
[2021-02-24] MEDS ORDERED: ACETAMINOPHEN 325MG TABLET PO PRN (21:15)
[2021-02-24] MEDS ORDERED: NA PHOS,M-B/NA PHOS,DI-BA ENEMA 118ML PR PRN (21:15)
[2021-02-24] MEDS ORDERED: IPRATROPIUM/ALBUTEROL 0.5-3(2.5)MG/3ML NEB NEB PRN (21:15)
[2021-02-24] MEDS ORDERED: GUAIFENESIN 200MG/10ML SUGAR FREE UDC PO PRN (21:15)
[2021-02-24] MEDS ORDERED: DOCUSATE SODIUM 100MG CAPSULE PO PRN (21:15)
[2021-02-24] MEDS ORDERED: MAGNESIUM/ALUMINUM HYDROXIDE/SIMETHICONE 30ML UDC PO PRN (21:15)
[2021-02-24] MEDS ORDERED: DIPHENHYDRAMINE 50MG/ML VIAL IV PRN (21:15)
[2021-02-24] MEDS ORDERED: ONDANSETRON HCL 4MG/2ML INJ IV PRN (21:15)
[2021-02-24] MEDS ORDERED: CLONIDINE 0.1MG TABLET PO PRN (21:15)
[2021-02-24 21:25] LABS: BASOPHILS % 0.5 % (0.0-2.0); EOSINOPHILS % 1.4 % (0.0-5.0); HEMATOCRIT. 43.8 % (36.0-48.0); HEMOGLOBIN. 13.8 g/dL (12.0-16.0); LYMPHOCYTES % 15.7 % (20.0-50.0); MEAN CORPUSCULAR HEMOGLOBIN 28.3 pg (28.0-32.0); MEAN CORPUSCULAR VOLUME 89.7 fL (81.0-99.0); MONOCYTES % 6.9 % (2.0-8.0); NEUTROPHILS % 75.5 % (40.0-76.0); RED BLOOD CELL COUNT 4.88 mill/uL (4.2-5.4); RED CELL DISTRIBUTION WIDTH 18.1 % (11.6-14.6)
[2021-02-24 21:29] LABS: CHLORIDE 95 mEq/L (98-107)
[2021-02-24] MEDS ORDERED: NALOXONE HCL 0.4MG/ML VIAL IV PRN (21:30)
[2021-02-24 21:52] LABS: MEAN PLATELET VOLUME 9.6 fl (7.4-10.4); PLATELET 92 x1000/uL (130-400)
[2021-02-24] MEDS: MORPHINE SULFATE 2 MG/ML CPJ (NOT FOR IM USE) IV PRN ×3 (23:48→23:58)
[2021-02-25] MEDS: MORPHINE SULFATE 2 MG/ML CPJ (NOT FOR IM USE) IV PRN (00:43)
[2021-02-25 01:00] VITALS: BP 136/68
[2021-02-25] MEDS ORDERED: ATOR40TA70 PO (01:38)
[2021-02-25 04:00] VITALS: BP 104/55
[2021-02-25] MEDS ORDERED: DEXTROSE 50% WATER 50ML SYRINGE IV PRN (05:00)
[2021-02-25] MEDS: INSULIN LISPRO 100 UNITS/ML SUBCUT SCH ×4 (06:02→21:48)
[2021-02-25] MEDS: BLOOD SUGAR DIAGNOSTIC STRIP TEST SCH ×4 (06:02→21:48)
[2021-02-25 08:00] VITALS: BP 126/69
[2021-02-25] MEDS: HYDROCODONE/APAP 7.5/325MG 1 TAB TABLET PO PRN (09:46)
[2021-02-25 12:00] VITALS: BP 102/52
[2021-02-25 13:05] LABS: HEPATITIS B SURFACE ANTIGEN NEGATIVE
[2021-02-25 16:00] VITALS: BP 115/81
[2021-02-25 20:00] VITALS: BP 141/60
[2021-02-26] VITALS: BP 104/57
[2021-02-26 04:00] VITALS: BP 133/70
[2021-02-26] MEDS: INSULIN LISPRO 100 UNITS/ML SUBCUT SCH ×4 (06:41→22:20)
[2021-02-26] MEDS: BLOOD SUGAR DIAGNOSTIC STRIP TEST SCH ×4 (06:41→21:00)
[2021-02-26 08:00] VITALS: BP_SYST 119; BP_SYST 138; BP_DIAS 72; BP_DIAS 73
[2021-02-26] MEDS: LORAZEPAM 2MG/ML CPJ IV PRN (09:53)
[2021-02-26 12:00] VITALS: BP 97/58
[2021-02-26] MEDS: MORPHINE SULFATE 2 MG/ML CPJ (NOT FOR IM USE) IV PRN (14:14)
[2021-02-26 16:00] VITALS: BP 157/79
[2021-02-26] MEDS: HYDROCODONE/APAP 7.5/325MG 1 TAB TABLET PO PRN (17:45)
[2021-02-26 20:00] VITALS: BP 125/53
[2021-02-27 04:00] VITALS: BP 132/64
[2021-02-27] MEDS: BLOOD SUGAR DIAGNOSTIC STRIP TEST SCH ×4 (06:53→20:19)
[2021-02-27] MEDS: INSULIN LISPRO 100 UNITS/ML SUBCUT SCH ×4 (06:54→21:02)
[2021-02-27 07:09] LABS: BASOPHILS % 1.2 % (0.0-2.0); EOSINOPHILS % 3.7 % (0.0-5.0); HEMOGLOBIN. 13.2 g/dL (12.0-16.0); LYMPHOCYTES % 27.3 % (20.0-50.0); MEAN CORPUSCULAR HEMOGLOBIN 27.8 pg (28.0-32.0); MEAN CORPUSCULAR VOLUME 88.9 fL (81.0-99.0); MEAN PLATELET VOLUME 8.3 fl (7.4-10.4); MONOCYTES % 11.2 % (2.0-8.0); NEUTROPHILS % 56.6 % (40.0-76.0); PLATELET 157 x1000/uL (130-400); RED BLOOD CELL COUNT 4.73 mill/uL (4.2-5.4)
[2021-02-27 08:00] VITALS: BP 138/72
[2021-02-27 12:00] VITALS: BP 134/61
[2021-02-27] MEDS: MORPHINE SULFATE 2 MG/ML CPJ (NOT FOR IM USE) IV PRN (12:50)
[2021-02-27] MEDS ORDERED: SODIUM POLYSTYRENE SULFONATE 15 G/60 ML BOT PO NR (13:00)
[2021-02-27] MEDS ORDERED: DEXTROSE 50% WATER 50ML SYRINGE IV SCH (14:00)
[2021-02-27] MEDS ORDERED: INSULIN REGULAR (HUMULIN R) UD 100 UNITS/ML SYR IV SCH (14:00)
[2021-02-27] MEDS: LORAZEPAM 2MG/ML CPJ IV PRN (15:08)
[2021-02-27 16:00] VITALS: BP 112/56
[2021-02-27 20:00] VITALS: BP 133/64
[2021-02-28] VITALS: BP 136/69
[2021-02-28 04:00] VITALS: BP 134/84
[2021-02-28] MEDS: BLOOD SUGAR DIAGNOSTIC STRIP TEST SCH ×4 (06:36→20:06)
[2021-02-28 07:57] LABS: EOSINOPHILS % 2.8 % (0.0-5.0); HEMATOCRIT. 43.9 % (36.0-48.0); HEMOGLOBIN. 13.7 g/dL (12.0-16.0); LYMPHOCYTES % 34.2 % (20.0-50.0); MEAN CORPUSCULAR VOLUME 89.5 fL (81.0-99.0); MEAN PLATELET VOLUME 8.4 fl (7.4-10.4); MONOCYTES % 12.4 % (2.0-8.0); NEUTROPHILS % 49.6 % (40.0-76.0); PLATELET 153 x1000/uL (130-400); RED CELL DISTRIBUTION WIDTH 18.1 % (11.6-14.6)
[2021-02-28 08:00] VITALS: BP 126/55
[2021-02-28] MEDS: INSULIN LISPRO 100 UNITS/ML SUBCUT SCH ×4 (08:16→20:06)
[2021-02-28] MEDS ORDERED: SODIUM POLYSTYRENE SULFONATE 15 G/60 ML BOT PO SCH ×2 (10:00→12:30)
[2021-02-28 12:00] VITALS: BP 138/62
[2021-02-28] MEDS: MORPHINE SULFATE 2 MG/ML CPJ (NOT FOR IM USE) IV PRN (12:04)
[2021-02-28] MEDS ORDERED: INSULIN REGULAR (HUMULIN R) UD 100 UNITS/ML SYR IV SCH (12:30)
[2021-02-28] MEDS ORDERED: CALCIUM GLUCONATE 1GM PREMIX 50 ML IV SCH (12:30)
[2021-02-28] MEDS: LORAZEPAM 1MG TABLET PO PRN (14:39)
[2021-02-28 16:00] VITALS: BP 153/64
[2021-02-28] MEDS: HYDROCODONE/APAP 7.5/325MG 1 TAB TABLET PO PRN (16:59)
[2021-02-28 20:00] VITALS: BP 111/55
[2021-02-28] MEDS: LORAZEPAM 2MG/ML CPJ IV PRN (20:05)
[2021-03-01 00:23] VITALS: BP 120/61
[2021-03-01 04:00] VITALS: BP 119/63
[2021-03-01] MEDS: MORPHINE SULFATE 2 MG/ML CPJ (NOT FOR IM USE) IV PRN (05:53)
[2021-03-01] MEDS: BLOOD SUGAR DIAGNOSTIC STRIP TEST SCH ×2 (05:57→11:40)
[2021-03-01] MEDS: INSULIN LISPRO 100 UNITS/ML SUBCUT SCH ×2 (06:13→12:10)
[2021-03-01 06:15] LABS: BASOPHILS % 0.6 % (0.0-2.0); EOSINOPHILS % 0.7 % (0.0-5.0); HEMATOCRIT. 47.1 % (36.0-48.0); LYMPHOCYTES % 16.1 % (20.0-50.0); MEAN CORPUSCULAR HEMOGLOBIN 28.5 pg (28.0-32.0); MEAN CORPUSCULAR VOLUME 89.5 fL (81.0-99.0); MEAN PLATELET VOLUME 8.2 fl (7.4-10.4); MONOCYTES % 10.8 % (2.0-8.0); NEUTROPHILS % 71.8 % (40.0-76.0); PLATELET 186 x1000/uL (130-400); RED BLOOD CELL COUNT 5.26 mill/uL (4.2-5.4); RED CELL DISTRIBUTION WIDTH 18.4 % (11.6-14.6)
[2021-03-01 08:00] VITALS: BP 118/56
[2021-03-01 12:00] VITALS: BP 121/59
[2021-03-01 12:31] VITALS: BP 121/59
[2021-03-01] MEDS: LORAZEPAM 1MG TABLET PO PRN (13:42)
== END 2021-03-01 15:00 | disposition home or self-care (01) | DRG 73 ==
LOC: ER 19:47 → EDBEDREQTM 21:33 → EDBEDREQ 21:33 → ENRESERV 22:38 → 7EST 02-25 00:26
PROVIDERS: ADMIT Internal Medicine; ATTEND Internal Medicine
PROC: 5A1D70Z Performance of Urinary Filtration, Intermittent, Less than 6 Hours Per Day (ICD-10-PCS; principal; 2021-02-25)
PROC: 5A1D70Z Performance of Urinary Filtration, Intermittent, Less than 6 Hours Per Day (ICD-10-PCS; 2021-02-26)
PROC: 5A1D70Z Performance of Urinary Filtration, Intermittent, Less than 6 Hours Per Day (ICD-10-PCS; 2021-02-28)
PROC: 5A1D70Z Performance of Urinary Filtration, Intermittent, Less than 6 Hours Per Day (ICD-10-PCS; 2021-03-01)
DX: E11.43 Type 2 diabetes mellitus with diabetic autonomic (poly)neuropathy (principal); N18.6 End stage renal disease; I13.2 Hypertensive heart and chronic kidney disease with heart failure and with stage 5 chronic kidney disease, or end stage renal disease; E46 Unspecified protein-calorie malnutrition; K31.84 Gastroparesis; K80.20 Calculus of gallbladder without cholecystitis without obstruction; K74.60 Unspecified cirrhosis of liver; E11.22 Type 2 diabetes mellitus with diabetic chronic kidney disease; E11.51 Type 2 diabetes mellitus with diabetic peripheral angiopathy without gangrene; H54.8 Legal blindness, as defined in USA; E11.40 Type 2 diabetes mellitus with diabetic neuropathy, unspecified; I25.10 Atherosclerotic heart disease of native coronary artery without angina pectoris; F41.1 Generalized anxiety disorder; I50.9 Heart failure, unspecified; Z79.82 Long term (current) use of aspirin; Z87.891 Personal history of nicotine dependence; Z99.2 Dependence on renal dialysis; Z88.5 Allergy status to narcotic agent; Z68.30 Body mass index [BMI] 30.0-30.9, adult
CPT/HCPCS: 36415; 76700; 80048; 80053; 80076; 82140; 82962; 84484; 85025; 86705; 86709; 86803; 87340; 99285; J0610; J1200; J1815; J2060; J2270; J2405

== ENCOUNTER 2021-03-21 10:34 | Inpatient (IN) | payer MEDICARE, MEDICAID ==
[~2021-03-21] VITALS: Ht 162.6 cm; Wt 76.7 kg
[~2021-03-21 10:34] MED LIST changes: +ATOR40TA70 PO; -CALA177S9 TP
[2021-03-21] MEDS ORDERED: ACETAMINOPHEN 325MG TABLET PO STA (11:21)
[2021-03-21] MEDS ORDERED: LORAZEPAM 1MG TABLET PO ONE (12:30)
[2021-03-21 12:34] LABS: BASOPHILS % 1.1 % (0.0-2.0); HEMATOCRIT. 41.2 % (36.0-48.0); HEMOGLOBIN. 12.7 g/dL (12.0-16.0); LYMPHOCYTES % 21.7 % (20.0-50.0); MEAN CORPUSCULAR HEMOGLOBIN 27.7 pg (28.0-32.0); MEAN CORPUSCULAR VOLUME 89.6 fL (81.0-99.0); MONOCYTES % 9.3 % (2.0-8.0); NEUTROPHILS % 64.9 % (40.0-76.0); PLATELET 106 x1000/uL (130-400); RED BLOOD CELL COUNT 4.59 mill/uL (4.2-5.4); RED CELL DISTRIBUTION WIDTH 18.2 % (11.6-14.6)
[2021-03-21 12:41] LABS: CHLORIDE 94 mEq/L (98-107)
[2021-03-21] MEDS ORDERED: VANCOMYCIN 1 G PREMIX 200 ML IV NR ×2 (17:30→22:00)
[2021-03-21] MEDS ORDERED: CEFTRIAXONE 1 G PREMIX 50 ML IV NR (17:30)
[2021-03-21 20:00] VITALS: BP 138/75
[2021-03-21] MEDS ORDERED: CLONIDINE 0.2MG TABLET PO PRN (20:15)
[2021-03-21] MEDS ORDERED: DEXTROSE 50% WATER 50ML SYRINGE IV PRN (20:15)
[2021-03-21] MEDS ORDERED: NALOXONE HCL 0.4MG/ML VIAL IV PRN (20:45)
[2021-03-21] MEDS ORDERED: ENOXAPARIN 30MG/0.3ML SYR SUBCUT SCH (21:00)
[2021-03-21] MEDS: INSULIN LISPRO 100 UNITS/ML SUBCUT SCH (21:00)
[2021-03-21] MEDS ORDERED: CEFTRIAXONE 1,000 MG in DEXTROSE 5% WATER 50 ML IV NR (21:30)
[2021-03-21] MEDS: BLOOD SUGAR DIAGNOSTIC STRIP TEST SCH (21:34)
[2021-03-21] MEDS: HYDRALAZINE HCL 50MG TABLET PO SCH (21:51)
[2021-03-21] MEDS: GABAPENTIN 100MG CAPSULE PO SCH (21:52)
[2021-03-21] MEDS: ATORVASTATIN CALCIUM 40MG TABLET PO SCH (21:52)
[2021-03-21] MEDS: HYDROMORPHONE HCL/PF 2MG/ML CPJ IV PRN (22:23)
[2021-03-22] VITALS: BP 102/67
[2021-03-22 04:00] VITALS: BP 104/62
[2021-03-22] MEDS: LORAZEPAM 2MG/ML CPJ IV PRN ×2 (05:48→11:00)
[2021-03-22] MEDS: BLOOD SUGAR DIAGNOSTIC STRIP TEST SCH ×4 (06:32→20:43)
[2021-03-22 08:00] VITALS: BP 111/40
[2021-03-22] MEDS: HYDRALAZINE HCL 50MG TABLET PO SCH ×3 (08:50→17:00)
[2021-03-22] MEDS: GABAPENTIN 100MG CAPSULE PO SCH ×2 (08:50→17:41)
[2021-03-22] MEDS: NIFEDIPINE XL 30MG TAB PO SCH (08:50)
[2021-03-22] MEDS: INSULIN LISPRO 100 UNITS/ML SUBCUT SCH ×4 (08:50→20:43)
[2021-03-22] MEDS: ENOXAPARIN 30MG/0.3ML SYR SUBCUT SCH (08:52)
[2021-03-22] MEDS ORDERED: ENOXAPARIN 40MG/0.4ML SYR SUBCUT SCH (09:00)
[2021-03-22] MEDS: INSULIN GLARGINE UD 100 UNITS/ML SYR SUBCUT SCH (10:32)
[2021-03-22 11:28] LABS: BASOPHILS % 1.1 % (0.0-2.0); EOSINOPHILS % 2.9 % (0.0-5.0); HEMOGLOBIN. 12.6 g/dL (12.0-16.0); LYMPHOCYTES % 22.3 % (20.0-50.0); MEAN CORPUSCULAR HEMOGLOBIN 28.3 pg (28.0-32.0); MEAN CORPUSCULAR VOLUME 89.4 fL (81.0-99.0); MEAN PLATELET VOLUME 9.3 fl (7.4-10.4); MONOCYTES % 8.3 % (2.0-8.0); NEUTROPHILS % 65.4 % (40.0-76.0); PLATELET 107 x1000/uL (130-400); RED BLOOD CELL COUNT 4.47 mill/uL (4.2-5.4); RED CELL DISTRIBUTION WIDTH 18.1 % (11.6-14.6)
[2021-03-22 12:00] VITALS: BP 133/75
[2021-03-22 12:23] LABS: INR 1.1; PARTIAL THROMBOPLASTIN TIME 27.9 sec (23.4-31.0); PROTHROMBIN TIME 12.2 sec (9.6-11.0)
[2021-03-22 12:35] LABS: HEPATITIS B SURFACE ANTIGEN NEGATIVE
[2021-03-22] MEDS: HYDROMORPHONE HCL/PF 2MG/ML CPJ IV PRN (12:53)
[2021-03-22] MEDS ORDERED: PIPERACILLIN/TAZOBACTAM 3.375 G in DEXTROSE 5% WATER 50 ML IV SCH (13:00)
[2021-03-22 16:00] VITALS: BP 111/60
[2021-03-22] MEDS: PIPERACILLIN/TAZOBACTAM 3.375 G in DEXTROSE 5% WATER 50 ML IV SCH ×2 (17:51→22:49)
[2021-03-22 20:00] VITALS: BP 111/59
[2021-03-22] MEDS: ATORVASTATIN CALCIUM 40MG TABLET PO SCH (21:00)
[2021-03-23] VITALS: BP 131/72
[2021-03-23] MEDS: LORAZEPAM 2MG/ML CPJ IV PRN ×2 (00:26→12:08)
[2021-03-23 04:00] VITALS: BP 136/73
[2021-03-23] MEDS: BLOOD SUGAR DIAGNOSTIC STRIP TEST SCH ×4 (06:24→21:43)
[2021-03-23] MEDS: INSULIN LISPRO 100 UNITS/ML SUBCUT SCH ×4 (07:50→21:00)
[2021-03-23 08:00] VITALS: BP 143/76
[2021-03-23] MEDS: ENOXAPARIN 30MG/0.3ML SYR SUBCUT SCH ×2 (09:00→10:19)
[2021-03-23] MEDS: HYDRALAZINE HCL 50MG TABLET PO SCH ×3 (10:18→17:59)
[2021-03-23] MEDS: GABAPENTIN 100MG CAPSULE PO SCH ×2 (10:18→17:59)
[2021-03-23] MEDS: NIFEDIPINE XL 30MG TAB PO SCH (10:19)
[2021-03-23] MEDS: INSULIN GLARGINE UD 100 UNITS/ML SYR SUBCUT SCH (10:57)
[2021-03-23 12:00] VITALS: BP 102/69
[2021-03-23] MEDS: PIPERACILLIN/TAZOBACTAM 3.375 G in DEXTROSE 5% WATER 50 ML IV SCH ×2 (12:24→21:00)
[2021-03-23] MEDS: HYDROMORPHONE HCL/PF 2MG/ML CPJ IV PRN (15:51)
[2021-03-23 16:00] VITALS: BP 126/65
[2021-03-23 20:00] VITALS: BP 95/54
[2021-03-23] MEDS: ATORVASTATIN CALCIUM 40MG TABLET PO SCH (21:48)
[2021-03-24] VITALS: BP 113/54
[2021-03-24 04:00] VITALS: BP 121/68
[2021-03-24] MEDS: HYDROMORPHONE HCL/PF 2MG/ML CPJ IV PRN ×3 (04:59→15:49)
[2021-03-24] MEDS: BLOOD SUGAR DIAGNOSTIC STRIP TEST SCH ×2 (06:43→12:21)
[2021-03-24] MEDS: INSULIN LISPRO 100 UNITS/ML SUBCUT SCH ×2 (07:50→12:34)
[2021-03-24 08:00] VITALS: BP_SYST 120; BP_SYST 123; BP_DIAS 54; BP_DIAS 64
[2021-03-24] MEDS ORDERED: EPINEPHRINE 0.1MG/ML (1:10,000) 10ML SYR ONE (08:47)
[2021-03-24] MEDS ORDERED: CALCIUM CHLORIDE 1GM/10ML SYR IV ONE (08:47)
[2021-03-24] MEDS ORDERED: SODIUM BICARBONATE 8.4% 1 MEQ/ML 50ML SYR IV ONE (08:47)
[2021-03-24] MEDS: PIPERACILLIN/TAZOBACTAM 3.375 G in DEXTROSE 5% WATER 50 ML IV SCH (09:00)
[2021-03-24] MEDS: ENOXAPARIN 30MG/0.3ML SYR SUBCUT SCH (09:04)
[2021-03-24] MEDS: GABAPENTIN 100MG CAPSULE PO SCH (09:05)
[2021-03-24] MEDS: HYDRALAZINE HCL 50MG TABLET PO SCH ×2 (09:05→15:08)
[2021-03-24] MEDS: NIFEDIPINE XL 30MG TAB PO SCH (09:05)
[2021-03-24] MEDS: INSULIN GLARGINE UD 100 UNITS/ML SYR SUBCUT SCH (09:51)
[2021-03-24 09:53] LABS: BASOPHILS % 1.4 % (0.0-2.0); EOSINOPHILS % 4.4 % (0.0-5.0); HEMATOCRIT. 41.3 % (36.0-48.0); HEMOGLOBIN. 13.3 g/dL (12.0-16.0); LYMPHOCYTES % 25.1 % (20.0-50.0); MEAN CORPUSCULAR VOLUME 90.1 fL (81.0-99.0); MEAN PLATELET VOLUME 8.9 fl (7.4-10.4); MONOCYTES % 10.5 % (2.0-8.0); NEUTROPHILS % 58.6 % (40.0-76.0); PLATELET 119 x1000/uL (130-400); RED BLOOD CELL COUNT 4.58 mill/uL (4.2-5.4); RED CELL DISTRIBUTION WIDTH 18.9 % (11.6-14.6)
[2021-03-24 12:00] VITALS: BP_SYST 131; BP_SYST 142; BP_DIAS 65; BP_DIAS 73
== END 2021-03-24 18:50 | DRG 314 ==
LOC: ER 10:50 → 6EST 16:54 → ENRESERV 17:15
PROVIDERS: ADMIT Internal Medicine; ATTEND Internal Medicine
PROC: 5A1D70Z Performance of Urinary Filtration, Intermittent, Less than 6 Hours Per Day (ICD-10-PCS; 2021-03-22)
PROC: 0BH17EZ Insertion of Endotracheal Airway into Trachea, Via Natural or Artificial Opening (ICD-10-PCS; principal; 2021-03-24)
PROC: 5A12012 Performance of Cardiac Output, Single, Manual (ICD-10-PCS; 2021-03-24)
PROC: 5A1D70Z Performance of Urinary Filtration, Intermittent, Less than 6 Hours Per Day (ICD-10-PCS; 2021-03-24)
DX: T82.868A Thrombosis due to vascular prosthetic devices, implants and grafts, initial encounter (principal); N18.6 End stage renal disease; I13.2 Hypertensive heart and chronic kidney disease with heart failure and with stage 5 chronic kidney disease, or end stage renal disease; R22.31 Localized swelling, mass and lump, right upper limb; D64.9 Anemia, unspecified; E11.43 Type 2 diabetes mellitus with diabetic autonomic (poly)neuropathy; F41.9 Anxiety disorder, unspecified; E11.51 Type 2 diabetes mellitus with diabetic peripheral angiopathy without gangrene; K31.84 Gastroparesis; E11.40 Type 2 diabetes mellitus with diabetic neuropathy, unspecified; E78.5 Hyperlipidemia, unspecified; I46.9 Cardiac arrest, cause unspecified; Z20.822 Contact with and (suspected) exposure to COVID-19; E11.319 Type 2 diabetes mellitus with unspecified diabetic retinopathy without macular edema; H54.8 Legal blindness, as defined in USA; E11.22 Type 2 diabetes mellitus with diabetic chronic kidney disease; I50.9 Heart failure, unspecified; Z99.2 Dependence on renal dialysis; Z88.5 Allergy status to narcotic agent; Z79.899 Other long term (current) drug therapy
CPT/HCPCS: 36415; 76881; 80048; 80053; 82962; 83036; 85025; 86705; 86709; 86803; 87340; 87426; 92950; 93971; 99285; C1893; J0696; J1170; J1650; J1815; J2060; J2543; J3370; J3490; J7040; J7060